=== PATIENT | female | born 1960 | race African-American/Black ===

== ENCOUNTER → 2016-10-14 | Outpatient (CLI) | payer MEDICARE ==
[2015-11-20 19:28] VITALS: BP 162/70
[~2016-10-14] MED LIST: AMLO10TA4 PO; ASPI325T70 PO; ATEN50TA PO; ATOR20TA PO; BUPR150T6 PO; CLON0.3T PO; PANT40TA5 PO; SERT100T PO; ZOLP10TA PO
--- NOTE | 2016-10-14 15:22 | RAD ---
DATE: 10/14/16 EXAM: DIGITAL SCREEN BILAT W/CAD HISTORY: Routine screening COMPARISON: 11/10/13. This study was interpreted with the benefit of Computerized Aided Detection (CAD). TECHNIQUE: CC and MLO views of both breasts are obtained. FINDINGS: The breast tissue density is [B ] . Scattered fibroglandular densities are seen bilaterally. Most lobectomy changes are seen in the left breast with unchanged architectural distortion related to lumpectomy. There are no dominant suspicious masses, suspicious microcalcifications or evidence of architectural distortion. Benign appearing calcifications are seen in the left breast . IMPRESSION: Benign findings BI-RADS CATEGORY: 2 BENIGN FINDING(S) RECOMMENDED FOLLOW-UP: 12M 12 MONTH FOLLOW-UP PQRS compliance statement: Patient information was entered into a reminder system with a target due date for the next mammogram. Mammography is a sensitive method for finding small breast cancers, but it does not detect them all and is not a substitute for careful clinical examination. A negative mammogram does not negate a clinically suspicious finding and should not result in delay in biopsying a clinically suspicious abnormality. "Our facility is accredited by the [employer] Mammography [employer]."
== END | disposition home or self-care (01) ==
LOC: MAMMO 12:12
PROVIDERS: ATTEND Internal Medicine Hematology & Oncology
DX: Z12.31 Encounter for screening mammogram for malignant neoplasm of breast (principal); Z85.3 Personal history of malignant neoplasm of breast
CPT/HCPCS: G0202; 77067

== ENCOUNTER → 2016-12-20 | Outpatient (CLI) | payer MEDICARE ==
[2015-11-20 19:28] VITALS: BP 162/70
--- NOTE | 2016-12-20 15:34 | KCIC ---
PROCEDURE MR of the right shoulder HISTORY Right shoulder pain. Decreased range of motion. Pain with movement since October 2016. TECHNIQUE Routine multiplanar sequences are obtained. COMPARISON FINDINGS Mild motion degradation. The acromioclavicular joint is mildly degenerative. Full-thickness rotator cuff tear of the anterior supraspinatus tendon measures 15 mm AP diameter with 15 mm retraction. Partial undersurface tearing extends through the more posterior rotator cuff. Moderate muscle volume loss with mild fatty infiltration. Mild subdeltoid bursal fluid. Subscapularis tendon is intact. Signal within the superior labrum compatible with degenerative tear. There is more subtle signal at the posterior labrum compatible with degeneration or tear. Biceps tendon is intact. No bone lesion or acute fracture. No acute soft tissue abnormality. No evidence of fluid collection. IMPRESSION 1. Moderate full-thickness tear of the supraspinatus tendon of the rotator cuff. Partial tearing through the more posterior cuff. 2. Degenerative tear of superior and possibly posterior labrum. Electronically signed by: Jaya Love MD (Dec 20, 2016 15:33:42)
== END | disposition home or self-care (01) ==
LOC: KCIC MRI 14:07
PROVIDERS: ATTEND Orthopaedic Surgery
DX: M25.511 Pain in right shoulder (principal)
CPT/HCPCS: 73221

== ENCOUNTER → 2017-06-23 | Outpatient (CLI) | payer MEDICARE ==
[2015-11-20 19:28] VITALS: BP 162/70
--- NOTE | 2017-06-23 10:14 | KCIC ---
MRI left shoulder without contrast dated 06/23/2017 8:45 AM Indication: Left shoulder pain , decreased range of motion , symptoms since January. Comparison: No comparison is available. Technique: Routine multiplanar multisequence imaging performed. No contrast. Findings: Intermediate T2 signal throughout the supraspinatus and infraspinatus portions of the rotator cuff. Full-thickness tear of the supraspinatus tendon with retraction to the 12:00 position. Cuff defect measures approximately 1.8 x 2.1 cm transverse and AP dimension. There is articular surface partial tearing of the infraspinatus with thin fibers that remain attached. The subscapularis is intact. Moderate hypertrophic change of the acromioclavicular joint. There is undersurface spurring of the acromium. There is an unossified os acromiale. Small amount of subacromial/subdeltoid bursal fluid. Intermediate T2 signal within the substance of the long head biceps tendon proximally. Extra articular portion courses within the bicipital groove. Mild hypertrophic change of the glenohumeral joint. Thinning and surface irregularity of the articular cartilage throughout. Selected full-thickness cartilage loss at the inferior glenoid. There is also a linear defect through the anterior inferior labrum in the labral cartilaginous interface. Blunted morphology of the posterior labrum. Suprascapular and spinoglenoid notches are clear. No significant muscle edema or muscle atrophy. IMPRESSION: 1. Rotator cuff tendinopathy with moderate size full-thickness tear of the supraspinatus. 2. Tearing of the anterior inferior labrum and posterior labrum, likely degenerative. 3. Moderate degenerative change in correlation the glenohumeral joint. 4. Mild proximal biceps tendinosis 5. Moderate AC joint arthropathy with undersurface spurring. There is an unossified os acromiale. Electronically signed by: Jaya Sanchez MD (06/23/2017 10:11 AM) [facility]-KCIC2
== END | disposition home or self-care (01) ==
LOC: KCIC MRI 08:35
PROVIDERS: ATTEND Orthopaedic Surgery
DX: M75.102 Unspecified rotator cuff tear or rupture of left shoulder, not specified as traumatic (principal); M19.012 Primary osteoarthritis, left shoulder
CPT/HCPCS: 73221

== ENCOUNTER → 2017-08-20 | Outpatient (CLI) | payer MEDICARE ==
[2015-11-20 19:28] VITALS: BP 162/70
--- NOTE | 2017-08-20 08:01 | RAD ---
Left lower extremity venous ultrasound, 08/20/2017 : History: Left leg swelling and pain Duplex evaluation including grayscale, color flow and spectral Doppler analysis was performed. The femoral and popliteal veins show no filling defects to suggest DVT. The visualized calf veins are unremarkable. IMPRESSION: There is no sonographic evidence of deep vein thrombosis in the left lower extremity
== END | disposition home or self-care (01) ==
LOC: US 07:03
PROVIDERS: ATTEND Family Medicine
DX: M79.605 Pain in left leg (principal); M79.89 Other specified soft tissue disorders; Z98.890 Other specified postprocedural states
CPT/HCPCS: 93971

== ENCOUNTER → 2018-01-09 | Outpatient (CLI) | payer MEDICARE ==
[2018-01-09 13:59] LABS: ADD MAN DIFF? NO
[2018-01-09 14:04] LABS: BASO % 1 % (0-3); EOS # 0.1 x10^3/uL (0.0-0.7); EOS % 2 % (0-3); HEMATOCRIT 37.1 % (36.0-47.0); HEMOGLOBIN 12.4 g/dL (12.0-15.5); LYMPH # 1.9 x10^3/uL (1.0-4.8); LYMPH % 36 % (24-48); MEAN CORPUSCULAR HEMOGLOBIN 28 pg (25-35); MEAN CORPUSCULAR HGB CONC 34 g/dL (31-37); MEAN CORPUSCULAR VOLUME 82 fL (79-100); MONO # 0.7 x10^3/uL (0.0-1.1); MONO % 14 % (0-9); NEUT # 2.4 x10^3uL (1.8-7.7); NEUT % 47 % (31-73); PLATELET COUNT 249 x10^3/uL (140-400); RED BLOOD COUNT 4.52 x10^6/uL (3.50-5.40); RED CELL DISTRIBUTION WIDTH 16.2 % (11.5-14.5); WHITE BLOOD COUNT 5.1 x10^3/uL (4.0-11.0)
[2018-01-09 14:40] LABS: C-REACTIVE PROTEIN 15.8 mg/L (0-3.3)
[2018-01-09 15:15] LABS: SEDIMENTATION RATE 47 (0-25)
== END | disposition home or self-care (01) ==
LOC: LAB 13:43
DX: Z98.890 Other specified postprocedural states (principal); I10 Essential (primary) hypertension; E78.5 Hyperlipidemia, unspecified; R79.89 Other specified abnormal findings of blood chemistry
CPT/HCPCS: 36415; 85025; 85651; 86140

== ENCOUNTER → 2018-02-04 | Outpatient (CLI) | payer MEDICARE ==
[2018-02-04] MEDS: LIDOCAINE 1% Multi-Dose 20 ML VIAL. ID (11:39)
[2018-02-04] MEDS: GADOBUTROL 7.5 MMOL/7.5 ML VIAL INT ART (11:39)
== END | disposition home or self-care (01) ==
LOC: KCIC 10:21
DX: M62.512 Muscle wasting and atrophy, not elsewhere classified, left shoulder (principal); I10 Essential (primary) hypertension; E78.00 Pure hypercholesterolemia, unspecified
CPT/HCPCS: 73040; 73222; A9585

== ENCOUNTER → 2019-07-30 | Outpatient (CLI) | payer MEDICARE ==
[2015-11-20 19:28] VITALS: BP 162/70
[~2019-07-30] MED LIST changes: -PANT40TA5 PO; +PANT40TA77 PO
[2019-07-30 12:10] LABS: BASO % 1 % (0-3); EOS # 0.2 x10^3/uL (0.0-0.7); EOS % 5 % (0-3); HEMATOCRIT 38.5 % (36.0-47.0); HEMOGLOBIN 12.6 g/dL (12.0-15.5); LYMPH # 2.4 x10^3/uL (1.0-4.8); LYMPH % 51 % (24-48); MEAN CORPUSCULAR HEMOGLOBIN 28 pg (25-35); MEAN CORPUSCULAR HGB CONC 33 g/dL (31-37); MEAN CORPUSCULAR VOLUME 85 fL (79-100); MONO # 0.5 x10^3/uL (0.0-1.1); MONO % 11 % (0-9); NEUT # 1.6 x10^3/uL (1.8-7.7); NEUT % 33 % (31-73); PLATELET COUNT 261 x10^3/uL (140-400); RED BLOOD COUNT 4.54 x10^6/uL (3.50-5.40); RED CELL DISTRIBUTION WIDTH 15.7 % (11.5-14.5); WHITE BLOOD COUNT 4.7 x10^3/uL (4.0-11.0)
[2019-07-30 12:35] LABS: ALBUMIN 3.4 g/dL (3.4-5.0); ALBUMIN/GLOBULIN RATIO 0.8 (1.0-1.7); CALCIUM 9.2 mg/dL (8.5-10.1); CREATININE 1.2 mg/dL (0.6-1.0); GFR 55.4; POTASSIUM 3.7 mmol/L (3.5-5.1); TOTAL BILIRUBIN 0.2 mg/dL (0.2-1.0); TOTAL PROTEIN 7.9 g/dL (6.4-8.2)
[2019-07-30 12:37] LABS: CHOLESTEROL/HDL RATIO 2.9
== END ==
LOC: LAB 11:36
PROVIDERS: ATTEND Family Medicine
DX: I63.9 Cerebral infarction, unspecified (principal); I10 Essential (primary) hypertension; E66.01 Morbid (severe) obesity due to excess calories; E78.2 Mixed hyperlipidemia; M19.90 Unspecified osteoarthritis, unspecified site; F41.9 Anxiety disorder, unspecified; F32.9 Major depressive disorder, single episode, unspecified; Z68.41 Body mass index [BMI] 40.0-44.9, adult; Z85.3 Personal history of malignant neoplasm of breast; Z90.89 Acquired absence of other organs; Z98.890 Other specified postprocedural states; Z90.710 Acquired absence of both cervix and uterus
CPT/HCPCS: 36415; 80053; 80061; 84443; 85025

== ENCOUNTER → 2019-10-27 | Outpatient (CLI) | payer BC, MEDICARE ==
[2015-11-20 19:28] VITALS: BP 162/70
--- NOTE | 2019-10-27 15:59 | RAD ---
DATE: October 27, 2019 EXAM: MAMMO MAGO DM VYAS, RIGHT AXILLARY SONOGRAPHY HISTORY: Right axillary lump. History of left breast cancer in 2005 treated with lumpectomy. 3-D DIAGNOSTIC BILATERAL MAMMOGRAPHY COMPARISON: 2013 and 2016 This study was interpreted with the benefit of Computerized Aided Detection (CAD). 2-D digital mammographic views of both breasts were performed in the CC and MLO projections. 3-D digital tomosynthesis images of both breasts were performed in the CC and MLO projections and reviewed on a computer workstation. FINDINGS: Breast Density: FATTY The breast parenchyma is primarily fatty replaced. Breast parenchyma level density A.. Postoperative changes of the left breast are seen which are stable. There are no new dominant suspicious masses, suspicious microcalcifications or new areas of architectural distortion. Fatty replaced axillary lymph node is again seen and is unchanged. RIGHT AXILLARY SONOGRAPHY: High-resolution sonography of the right axillary region was performed in the area of the palpable lump as indicated by the patient. There is a 3.0 cm lymph node present with normal sonographic architecture. There is no abnormal thickening of the hypoechoic cortex. IMPRESSION: Benign appearing fatty replaced right axillary lymph node which is unchanged in size from 2017 mammogram. With regard to any palpable lump of the right axillary region, follow-up should be clinical. Stable postoperative changes of the left breast. There are no mammographic findings for new or recurrent malignancy. BI-RADS CATEGORY: 2 BENIGN FINDING RECOMMENDED FOLLOW-UP: 12M 12 MONTH FOLLOW-UP PQRS compliance statement: Patient information was entered into a reminder system with a target due date October 28, 2020 for the next mammogram. Mammography is a sensitive method for finding small breast cancers, but it does not detect them all and is not a substitute for careful clinical examination. A negative mammogram does not negate a clinically suspicious finding and should not result in delay in biopsying a clinically suspicious abnormality. "Our facility is accredited by the [employer] Mammography [employer]." The patient's breast density may affect the ability of mammography to detect breast cancer. There are 4 categories of breast density, A, B, C and D. Breast density A means that most of the breast tissue is replaced with adipose tissue and therefore is not dense. Breast density B means that the breast tissue is mildly dense and scattered. Breast density C means that the breast tissue is heterogeneously dense. Breast density D means that the breast tissue is very dense. Breast densities especially C and D may decrease the sensitivity of mammography to detect breast cancer. Therefore, the patient may benefit from 3-D breast mammography (3D breast tomography) as a part of their screening mammogram. Insurance may or may not pay for this additional imaging. The patient's breast density based on today's mammogram is category A.
[2019-10-27 16:38] LABS: ALBUMIN 3.6 g/dL (3.4-5.0); ALBUMIN/GLOBULIN RATIO 0.8 (1.0-1.7); CALCIUM 9.1 mg/dL (8.5-10.1)
[2019-10-27 16:39] LABS: CHOLESTEROL/HDL RATIO 2.3; GFR 68.4; POTASSIUM 4.1 mmol/L (3.5-5.1); TOTAL BILIRUBIN 0.4 mg/dL (0.2-1.0)
== END | disposition home or self-care (01) ==
LOC: MAMMO 14:40
PROVIDERS: ATTEND Internal Medicine Hematology & Oncology
DX: E78.2 Mixed hyperlipidemia (principal); N63.10 Unspecified lump in the right breast, unspecified quadrant; Z98.890 Other specified postprocedural states; Z85.3 Personal history of malignant neoplasm of breast
CPT/HCPCS: 36415; 76641; 77066; 80053; 80061; G0279; 77062

== ENCOUNTER → 2020-09-25 | Outpatient (CLI) | payer BC ==
[2015-11-20 19:28] VITALS: BP 162/70
[~2020-09-25] MED LIST changes: +BUPR150T21 PO; -BUPR150T6 PO
[2020-09-25 13:56] LABS: BASO % 1 % (0-3); EOS % 1 % (0-3); HEMATOCRIT 38.4 % (36.0-47.0); HEMOGLOBIN 12.5 g/dL (12.0-15.5); LYMPH # 1.9 x10^3/uL (1.0-4.8); LYMPH % 36 % (24-48); MEAN CORPUSCULAR HEMOGLOBIN 27 pg (25-35); MEAN CORPUSCULAR HGB CONC 33 g/dL (31-37); MEAN CORPUSCULAR VOLUME 84 fL (79-100); MONO # 0.7 x10^3/uL (0.0-1.1); MONO % 15 % (0-9); NEUT # 2.5 x10^3/uL (1.8-7.7); NEUT % 48 % (31-73); PLATELET COUNT 276 x10^3/uL (140-400); RED BLOOD COUNT 4.56 x10^6/uL (3.50-5.40); RED CELL DISTRIBUTION WIDTH 15.7 % (11.5-14.5); WHITE BLOOD COUNT 5.2 x10^3/uL (4.0-11.0)
[2020-09-25 14:13] LABS: ALBUMIN 3.5 g/dL (3.4-5.0); ALBUMIN/GLOBULIN RATIO 0.8 (1.0-1.7); CALCIUM 9.3 mg/dL (8.5-10.1); CREATININE 1.1 mg/dL (0.6-1.0); GFR 61.1; POTASSIUM 3.5 mmol/L (3.5-5.1); TOTAL BILIRUBIN 0.5 mg/dL (0.2-1.0); TOTAL PROTEIN 7.9 g/dL (6.4-8.2)
== END ==
LOC: LAB 13:16
PROVIDERS: ATTEND Family Medicine
DX: I12.9 Hypertensive chronic kidney disease with stage 1 through stage 4 chronic kidney disease, or unspecified chronic kidney disease (principal); N18.9 Chronic kidney disease, unspecified; F41.9 Anxiety disorder, unspecified; Z68.41 Body mass index [BMI] 40.0-44.9, adult
CPT/HCPCS: 36415; 80053; 80061; 84443; 85025

== ENCOUNTER → 2020-10-04 | Outpatient (CLI) | payer BC ==
[2015-11-20 19:28] VITALS: BP 162/70
[~2020-10-04] MED LIST changes: -BUPR150T21 PO; +BUPR150T7 PO
--- NOTE | 2020-10-04 18:34 | RAD ---
Examination: Bilateral digital diagnostic mammogram. INDICATION: Patient is due for mammographic screening. She has a personal history of left breast canc er. COMPARISON: 10/27/2019, 10/14/2016 TECHNIQUE: CC and MLO views of both breasts were obtained with 2-D and 3-D technique and reviewed wit h computer-aided detection. A full field right ML view with 2-D and 3-D technique was also obtained. FINDINGS: Almost entirely fatty replaced breast parenchyma. Stable benign surgical scar in the lateral left breast, consistent with postlumpectomy changes. Questionable asymmetry in the superior right breast at the 12:00 position 4 cm from the nipple seen o n the MLO view did not persist with additional mammographic views in the true lateral projection. IMPRESSION: Benign findings. No evidence of malignancy. BI-RADS Category 2 Benign Recommend return to routine screening next due in one year. Patient entered into a reminder system with target due date for next mammogram. Electronically signed by: Luis Henley MD (10/04/2020 6:32 PM) [id number]
== END ==
LOC: MAMMO 14:45
PROVIDERS: ATTEND Internal Medicine Hematology & Oncology
DX: R92.2 Inconclusive mammogram (principal); Z85.3 Personal history of malignant neoplasm of breast
CPT/HCPCS: 77066; G0279; 77062

== ENCOUNTER → 2021-01-08 | Outpatient (CLI) | payer MEDICARE ==
[2015-11-20 19:28] VITALS: BP 162/70
[~2021-01-08] MED LIST changes: +BUPR150T21 PO; -BUPR150T7 PO
--- NOTE | 2021-01-08 16:01 | RAD ---
EXAM: Left ankle, 3 views. HISTORY: Pain. COMPARISON: None. FINDINGS: 3 views of the left ankle are obtained. There are corticated ossicles inferior to the media l and lateral malleoli, likely degenerative or the sequela of remote injury. There is no acute fractu re, dislocation or subluxation. There is no osteochondral lesion. The ankle mortise intact. There is a small plantar spur and there is enthesopathy at the calyceal insertion. IMPRESSION: No acute osseous finding. Electronically signed by: Marlene Storey MD (01/08/2021 3:58 PM) [id number]
== END ==
LOC: RAD 14:55
PROVIDERS: ATTEND Family Medicine
DX: M77.32 Calcaneal spur, left foot (principal)
CPT/HCPCS: 73610

== ENCOUNTER → 2021-02-02 | Outpatient (CLI) | payer MEDICARE ==
[2015-11-20 19:28] VITALS: BP 162/70
--- NOTE | 2021-02-02 11:06 | RAD ---
EXAM: Pelvis and left hip, 3 views. HISTORY: Pain. COMPARISON: None. FINDINGS: A frontal view of the pelvis and 2 views of the left hip are obtained. There is no fracture , dislocation or subluxation. There is minimal degenerative subchondral sclerosis and subchondral cys t formation involving the left femoral head-neck junction. This is not within limits to suggest signi ficant hip impingement. There is degenerative change, instrumented fusion and laminotomy decompressio n involving the lower lumbar spine. IMPRESSION: 1. No acute osseous finding. 2. Minimal osteoarthritis involving the left hip. 3. Degenerative and postoperative changes involving the lumbar spine. Electronically signed by: Marlene Storey MD (02/02/2021 11:04 AM) [id number]
== END ==
LOC: RAD 09:11
PROVIDERS: ATTEND Family Medicine
DX: M16.12 Unilateral primary osteoarthritis, left hip (principal); M47.816 Spondylosis without myelopathy or radiculopathy, lumbar region; G89.29 Other chronic pain
CPT/HCPCS: 73502

== ENCOUNTER → 2021-03-05 | Outpatient (CLI) | payer MEDICARE ==
[2015-11-20 19:28] VITALS: BP 162/70
[2021-03-05 11:48] LABS: BASO % 1 % (0-3); EOS # 0.2 x10^3/uL (0.0-0.7); EOS % 4 % (0-3); HEMATOCRIT 38.2 % (36.0-47.0); HEMOGLOBIN 12.5 g/dL (12.0-15.5); LYMPH # 1.7 x10^3/uL (1.0-4.8); LYMPH % 35 % (24-48); MEAN CORPUSCULAR HEMOGLOBIN 28 pg (25-35); MEAN CORPUSCULAR HGB CONC 33 g/dL (31-37); MEAN CORPUSCULAR VOLUME 86 fL (79-100); MONO # 0.6 x10^3/uL (0.0-1.1); MONO % 12 % (0-9); NEUT # 2.4 x10^3/uL (1.8-7.7); NEUT % 49 % (31-73); PLATELET COUNT 286 x10^3/uL (140-400); RED BLOOD COUNT 4.46 x10^6/uL (3.50-5.40); WHITE BLOOD COUNT 4.9 x10^3/uL (4.0-11.0)
[2021-03-05 12:10] LABS: ALBUMIN 4.1 g/dL (3.4-5.0); CALCIUM 9.1 mg/dL (8.5-10.1); CREATININE 1.1 mg/dL (0.6-1.0); GFR 61.1; TOTAL BILIRUBIN 0.5 mg/dL (0.2-1.0); TOTAL PROTEIN 8.3 g/dL (6.4-8.2)
[2021-03-05 12:13] LABS: FREE T4 0.84 ng/dL (0.76-1.46); THYROID STIM HORMONE (TSH) 0.647 uIU/mL (0.358-3.74)
== END ==
LOC: LAB 10:03
PROVIDERS: ATTEND Family Medicine
DX: I10 Essential (primary) hypertension (principal); R01.1 Cardiac murmur, unspecified; F33.1 Major depressive disorder, recurrent, moderate
CPT/HCPCS: 36415; 80053; 80061; 83880; 84439; 84443; 85025

== ENCOUNTER → 2021-03-06 | Outpatient (CLI) | payer MEDICARE ==
[2015-11-20 19:28] VITALS: BP 162/70
--- NOTE | 2021-03-06 16:05 | KCIC ---
EXAM: Lumbar spine MRI without contrast. HISTORY: Radiculopathy. TECHNIQUE: Multiplanar, multisequence magnetic resonance imaging of the lumbar spine was performed wi thout contrast. COMPARISON: 10/19/2015 FINDINGS: There is instrumented posterior spinal fusion and laminectomy decompression at L4-L5. There are also laminectomy changes at L5-S1. There is lumbar scoliosis. There is grade 1 anterolisthesis o f L4 and L5, measuring 4 mm. There is grade 1 anterolisthesis of L2 on L3, measuring 2 mm. There is m ultilevel endplate remodeling. There are few endplate Schmorl's nodes. There is no fracture or suspic ious osseous lesion. The conus terminates at L1-L2. There is an incidental atrophic or hypoplastic left kidney with small simple cyst. Follow-up is not r outinely performed for simple cysts. At T10-T11, there is a disc bulge and endplate remodeling. There is mild left facet arthropathy. Ther e is mild right and moderate left foraminal stenosis. There is mild central canal stenosis. At T11-T12, there is a disc bulge and endplate remodeling. There is mild right greater than left face t arthropathy. There is moderate right foraminal stenosis. There is mild central canal stenosis. At T12-L1, there is moderate left greater than right facet arthropathy. There is no stenosis. At L1-L2, there is moderate bilateral facet arthropathy. There is no stenosis. At L2-L3, there is a disc bulge and endplate remodeling. There is severe right and moderate to severe left facet arthropathy. There is anterolisthesis. There is mild bilateral foraminal stenosis with ab utment of the exiting L2 nerve roots. There is mild to moderate central canal stenosis. At L3-L4, there is a disc bulge and endplate osteophytosis. There is moderate bilateral facet arthrop athy. There is mild bilateral foraminal stenosis with abutment of the exiting L3 nerve roots. There i s mild to moderate central canal stenosis. At L4-L5, there is instrumented posterior spinal fusion and laminectomy decompression. There is a dis c bulge and endplate remodeling. There is grade 1 anterolisthesis. There is mild left foraminal steno sis. At L5-S1, there are left hemilaminectomy and microdiscectomy changes. There is a left paracentral to lateral recess disc protrusion and annular tear with 3 mm inferior extrusion superimposed on endplate osteophytosis. There is effacement of the left lateral recess and abutment the traversing left S1 ne rve root. IMPRESSION: 1. Multilevel degenerative change involving the lower thoracic and lumbar spine, described in detail above. This results in stenosis at the aforementioned levels. 2. Instrumented posterior spinal fusion and laminectomy decompression at L4-L5 and left hemilaminecto my and microdiscectomy changes at L5-S1. There is effacement of the left lateral recess at L5-S1 like ly due to the combination of a left paracentral to lateral recess disc protrusion and inferior extrus ion and postoperative scar/granulation tissue. 3. Mild scoliosis and multilevel listhesis. Electronically signed by: Marlene Storey MD (03/06/2021 4:02 PM) [id number]
== END ==
LOC: KCIC MRI 14:06
PROVIDERS: ATTEND Family Medicine
DX: M51.17 Intervertebral disc disorders with radiculopathy, lumbosacral region (principal); M47.25 Other spondylosis with radiculopathy, thoracolumbar region; M41.86 Other forms of scoliosis, lumbar region; M48.05 Spinal stenosis, thoracolumbar region
CPT/HCPCS: 72148

== ENCOUNTER 2021-03-15 09:23 | Observation (INO) | payer MEDICARE ==
[~2021-03-15] VITALS: Ht 167.6 cm; Wt 104.0 kg
--- NOTE | 2021-03-15 09:30 | ED.ADGEN ---
Past Medical History Past Medical History: Arthritis, Fibromyalgia, High Cholesterol, Stroke Past Surgical History: Knee Replacement, Other Additional Past Surgical Histo: BACK SURGERY Smoking Status: Never Smoker Alcohol Use: None Drug Use: None General Adult EDM: Chief Complaint: SHORTNESS OF BREATH HPI: HPI: Patient is a 60 year old female coming in via EMS for shortness of breath and right back pain. Patient stated she woke up with the pain and now feels short of breath because is difficult to breathe because breathing makes the pain worse. Patient denies any tobacco history or lung problems. Patient has a history of dyslipidemia hypertension, and breast cancer 15 years ago. Denies a cough. Has had both of her Covid vaccines. No personal cardiac history Review of Systems: Review of Systems: All other systems within normal limits except for as noted in the HPI Current Medications: Current Medications Medications (Trade) Dose Ordered Sig/Adrian Start Time Stop Time Status Last Admin Dose Admin Acetaminophen (Tylenol) 650 mg PRN Q4HRS PRN 03/15/21 13:45 03/16/21 13:44 Diphenhydramine HCl (Benadryl) 50 mg OC PROC PRN 03/16/21 06:00 03/17/21 05:59 Famotidine (Pepcid) 20 mg OC PROC PRN 03/16/21 06:00 03/17/21 05:59 Fentanyl Citrate (Fentanyl 2ml Vial) 50 mcg PRN Q1HR PRN 03/15/21 13:45 03/16/21 13:44 Ketorolac Tromethamine (Toradol 15mg Vial) 15 mg 1X ONCE 03/15/21 10:15 03/15/21 10:16 DC 03/15/21 10:48 15 MG Ondansetron HCl (Zofran) 4 mg PRN Q8HRS PRN 03/15/21 13:45 03/16/21 13:44 Prednisone (Prednisone) 50 mg Q6H 03/15/21 13:45 03/16/21 01:46 Allergies: Allergies: Allergies Coded Allergies Type Severity Reaction Last Updated Verified Iodinated Contrast Media Allergy Intermediate Rash 10/19/15 Yes iodine Allergy Intermediate Hives 10/18/15 Yes morphine Allergy Intermediate Rash 10/18/15 Yes Physical Exam: PE: Constitutional: Well developed, well nourished, no acute distress, non-toxic appearance. [] HENT: Normocephalic, atraumatic, bilateral external ears normal, nose normal. [] Eyes: PERRLA, conjunctiva normal, no discharge. [] Neck: No rigidity, supple, no stridor. [] Cardiovascular: Regular rate and rhythm, brisk cap refill [] Lungs & Thorax: Non labored symmetric respirations, no tachypnea or respiratory distress [] Abdomen: Soft, nondistended. Skin: Warm, dry, no erythema, no rash. [] Back: Unremarkable, right CVA tenderness reproducible palpation Extremities: No deformities, range of motion grossly intact, no lower extremity edema [] Neurologic: Alert and oriented X 3, no focal deficits noted. [] Psychologic: Affect normal, judgement normal, mood normal. [] Current Patient Data: Labs: Laboratory Tests Test 03/15/21 09:52 03/15/21 10:14 03/15/21 10:43 White Blood Count 6.6 x10^3/uL (4.0-11.0) Red Blood Count 4.28 x10^6/uL (3.50-5.40) Hemoglobin 12.1 g/dL (12.0-15.5) Hematocrit 36.4 % (36.0-47.0) Mean Corpuscular Volume 85 fL (79-100) Mean Corpuscular Hemoglobin 28 pg (25-35) Mean Corpuscular Hemoglobin Concent 33 g/dL (31-37) Red Cell Distribution Width 15.9 % (11.5-14.5) H Platelet Count 252 x10^3/uL (140-400) Neutrophils (%) (Auto) 52 % (31-73) Lymphocytes (%) (Auto) 31 % (24-48) Monocytes (%) (Auto) 13 % (0-9) H Eosinophils (%) (Auto) 3 % (0-3) Basophils (%) (Auto) 1 % (0-3) Neutrophils # (Auto) 3.4 x10^3/uL (1.8-7.7) Lymphocytes # (Auto) 2.1 x10^3/uL (1.0-4.8) Monocytes # (Auto) 0.9 x10^3/uL (0.0-1.1) Eosinophils # (Auto) 0.2 x10^3/uL (0.0-0.7) Basophils # (Auto) 0.1 x10^3/uL (0.0-0.2) Sodium Level 141 mmol/L (136-145) Potassium Level 4.1 mmol/L (3.5-5.1) Chloride Level 105 mmol/L (98-107) Carbon Dioxide Level 24 mmol/L (21-32) Anion Gap 12 (6-14) Blood Urea Nitrogen 25 mg/dL (7-20) H Creatinine 1.3 mg/dL (0.6-1.0) H Estimated GFR (Cockcroft-Gault) 50.4 BUN/Creatinine Ratio 19 (6-20) Glucose Level 84 mg/dL (70-99) Calcium Level 9.4 mg/dL (8.5-10.1) Total Bilirubin 0.4 mg/dL (0.2-1.0) Aspartate Amino Transferase (AST) 33 U/L (15-37) Alanine Aminotransferase (ALT) 33 U/L (14-59) Alkaline Phosphatase 100 U/L (46-116) Troponin I Quantitative < 0.017 ng/mL (0.000-0.055) Total Protein 7.7 g/dL (6.4-8.2) Albumin 4.1 g/dL (3.4-5.0) Albumin/Globulin Ratio 1.1 (1.0-1.7) Urine Collection Type Void Urine Color Yellow Urine Clarity Clear Urine pH 7.0 (<5.0-8.0) Urine Specific Starlight 1.010 (1.000-1.030) Urine Protein Negative mg/dL (NEG-TRACE) Urine Glucose (UA) Negative mg/dL (NEG) Urine Ketones (Stick) Negative mg/dL (NEG) Urine Blood Negative (NEG) Urine Nitrite Negative (NEG) Urine Bilirubin Negative (NEG) Urine Urobilinogen Dipstick 0.2 mg/dL (0.2 mg/dL) Urine Leukocyte Esterase Trace (NEG) Urine RBC 0 /HPF (0-2) Urine WBC 1-4 /HPF (0-4) Urine Squamous Epithelial Cells Few /LPF Urine Bacteria Few /HPF (0-FEW) D-Dimer (Kiersten) 0.68 ug/mlFEU (0.00-0.50) H Laboratory Tests 03/15/21 09:52 Laboratory Tests 03/15/21 09:52 Vital Signs: Vital Signs Date Time Temp Pulse Resp B/P (MAP) Pulse Ox O2 Delivery O2 Flow Rate FiO2 03/15/21 11:59 20 98 Room Air 03/15/21 10:30 71 138/80 (99) EKG: EKG: Sinus rhythm, heart rate 60 bpm, left axis deviation, no ST elevation or depression, T wave inversions in V2, V3, V4, V5. Heart Score: C/O Chest Pain: No Risk Factors: Risk Factors: DM, Current or recent (<one month) smoker, HTN, HLP, family hist ory of CAD, obesity. Risk Scores: Score 0 - 3: 2.5% MACE over next 6 weeks - Discharge Home Score 4 - 6: 20.3% MACE over next 6 weeks - Admit for Clinical Observation Score 7 - 10: 72.7% MACE over next 6 weeks - Early Invasive Strategies Radiology/Procedures: Radiology/Procedures: [facility] [address] [place] [address] IMAGING REPORT Signed PATIENT: FRANK JAY ACCOUNT: [id number] : 1960 LOCATION: ER AGE: 60 SEX: F EXAM STATUS: PRE ER ORD. PHYSICIAN: SHAKILA MATA MD REASON: dyspnea,pain rt side when takes deep breath. PROCEDURE: CHEST PA & LATERAL EXAMINATION: Chest radiograph. VIEWS: Single view COMPARISON: 10/18/2015 INDICATION:60 years, Female, dyspnea and right chest pain. FINDINGS: Normal cardiomediastinal silhouette. No focal consolidation. No pleural effusion or pneumothorax. No acute osseous process. IMPRESSION: No acute cardiopulmonary process. Electronically signed by: Eliu Ornelas MD (03/15/2021 10:05 AM) [id number] DICTATED and SIGNED BY: ELIU ORNELAS MD DATE: 03/15/21 [id number] 0 [] Course & Med Decision Making: Course & Med Decision Making Pertinent Labs and Imaging studies reviewed. (See chart for details) Patient with elevated dimer and and intermediate probability of PE on VQ scan. Discussed with radiologist and interventional radiology rn, will admit for pretreatment for patient's contrast allergy to have a CTA done to rule out or in a PE [] Clark Disclaimer: Clark Disclaimer: This electronic medical record was generated, in whole or in part, using a voice recognition dictation system. Departure Departure Impression: Primary Impression: Dyspnea Additional Impression: Rib pain on right side Disposition: ADMITTED INPATIENT Admitting Physician: BRIANA Condition: STABLE Referrals: ORACIO ACE (PCP) Problem Qualifiers SHAKILA MATA MD Mar 15, 2021 09:30
[2021-03-15 10:02] LABS: BASO # 0.1 x10^3/uL (0.0-0.2); BASO % 1 % (0-3); EOS # 0.2 x10^3/uL (0.0-0.7); EOS % 3 % (0-3); HEMATOCRIT 36.4 % (36.0-47.0); HEMOGLOBIN 12.1 g/dL (12.0-15.5); LYMPH # 2.1 x10^3/uL (1.0-4.8); LYMPH % 31 % (24-48); MEAN CORPUSCULAR HEMOGLOBIN 28 pg (25-35); MEAN CORPUSCULAR HGB CONC 33 g/dL (31-37); MEAN CORPUSCULAR VOLUME 85 fL (79-100); MONO # 0.9 x10^3/uL (0.0-1.1); MONO % 13 % (0-9); NEUT # 3.4 x10^3/uL (1.8-7.7); NEUT % 52 % (31-73); PLATELET COUNT 252 x10^3/uL (140-400); RED BLOOD COUNT 4.28 x10^6/uL (3.50-5.40); RED CELL DISTRIBUTION WIDTH 15.9 % (11.5-14.5); WHITE BLOOD COUNT 6.6 x10^3/uL (4.0-11.0)
--- NOTE | 2021-03-15 10:08 | RAD ---
EXAMINATION: Chest radiograph. VIEWS: Single view COMPARISON: 10/18/2015 INDICATION:60 years, Female, dyspnea and right chest pain. FINDINGS: Normal cardiomediastinal silhouette. No focal consolidation. No pleural effusion or pneumothorax. No acute osseous process. IMPRESSION: No acute cardiopulmonary process. Electronically signed by: Stephenie Ornelas MD (03/15/2021 10:05 AM) [id number]
[2021-03-15 10:12] LABS: CALCIUM 9.4 mg/dL (8.5-10.1); CREATININE 1.3 mg/dL (0.6-1.0); GFR 50.4; POTASSIUM 4.1 mmol/L (3.5-5.1)
[2021-03-15] MEDS ORDERED: KETOROLAC 15 MG/ML VIAL. IVP ONE (10:15)
[2021-03-15 10:18] LABS: ALBUMIN 4.1 g/dL (3.4-5.0); ALBUMIN/GLOBULIN RATIO 1.1 (1.0-1.7); TOTAL BILIRUBIN 0.4 mg/dL (0.2-1.0); TOTAL PROTEIN 7.7 g/dL (6.4-8.2)
[2021-03-15 10:26] LABS: BILIRUBIN,URINE NEGATIVE (NEG); CLARITY,URINE CLEAR; COLOR,URINE YELLOW; NITRITE,URINE NEGATIVE (NEG); PROTEIN,URINE NEGATIVE (NEG-TRACE); UROBILINOGEN,URINE 0.2 mg/dL (0.2 mg/dL)
[2021-03-15 10:34] LABS: BACTERIA,URINE FEW /HPF (0-FEW); RBC,URINE 0 /HPF (0-2)
[2021-03-15] MEDS ORDERED: fentaNYL PF VIAL 100 MCG/2 ML VIAL IVP ONE (11:45)
--- NOTE | 2021-03-15 12:51 | RAD ---
Indication: Reason: dyspnea, elevated dimer / Spl. Instructions: / History: Technique: Static images are obtained of both lungs following IV administration of 6 mCi of 99 M tech netium MAA. 16 mci of xenon-133 was administered for ventilation images. Comparison: Chest x-ray from same day Findings: There are some bilateral perfusion defects identified with some of these best seen on oblique or late ral perfusion images therefore difficult to tell if these are matched or mismatched. Impression: 1. Overall intermediate probability for pulmonary embolus with some bilateral patchy perfusion defect s seen. Electronically signed by: Casa Jara MD (03/15/2021 12:49 PM) [id number]
--- NOTE | 2021-03-15 13:36 | PDOC1 ---
History and Physical Date of Admission Date of Admission DATE: 03/15/21 TIME: 13:34 Identification/Chief Complaint Chief Complaint chest discomfort, abnormal pulm perfusion scan in ER History of Present Illness History of Present Illness 60 year old femaleTO ER via EMS for shortness of breath and right back pain. stated she woke up with the pain and now feels short of breath because is difficult to breathe because breathing makes the pain worse. denies any tobacco history or lung problems. review of history dyslipidemia hypertension, and breast cancer 15 years ago. Denies cough. completed both of her Covid vaccines perfusion scan intermediate probability for pulmonary embolus bilateral patchy perfusion defects d-DIMER elevated 0.68 / CT angiogram in the morning if BUN and creatinine correct with hydration cr 1.3 on admit, will consult nephrology Past Medical History Past Medical History Past Medical History Past Medical History Past Medical History: Arthritis, Fibromyalgia, High Cholesterol, Stroke Past Surgical History: Knee Replacement, Other Additional Past Surgical Histo: BACK SURGERY Smoking Status: Never Smoker Alcohol Use: None Drug Use: None Past Medical History Past Medical History Past Medical History: Arthritis, Fibromyalgia, High Cholesterol, Stroke BCA s/p sx, chemo and RT Past Surgical History Past Surgical History mastectomy Past Surgical History: Knee Replacement Family History Family History: Heart Disease FHX OBESITY Social History Smoke: No ALCOHOL: none Drugs: None Cardiovascular: HTN, Hyperlipidemia Pulmonary: Pneumonia CENTRAL NERVOUS SYSTEM: CVA GI: No pertinent hx Heme/Onc: Cancer Hepatobiliary: No pertinent hx Psych: Depression Musculoskeletal: Osteoarthritis Rheumatologic: Fibromyalgia Infectious disease: No pertinent hx, Other Renal/: UTI Endocrine: No pertinent hx Past Surgical History Past Surgical History: Appendectomy, Total knee replacement, Tonsillectomy, Other Family History Family History: Hypertension, Stroke Social History Smoke: No ALCOHOL: none Drugs: None Current Medications Current Medications Current Medications Ketorolac Tromethamine (Toradol 15mg Vial) 15 mg 1X ONCE IVP Last administered on 03/15/21at 10:48; Start 03/15/21 at 10:15; Stop 03/15/21 at 10:16; Status DC Fentanyl Citrate (Fentanyl 2ml Vial) 75 mcg 1X ONCE IVP Last administered on 03/15/21at 11:59; Start 03/15/21 at 11:45; Stop 03/15/21 at 11:46; Status DC Active Scripts Active Pantoprazole Sodium 40 Mg Tablet.dr 40 Mg PO DAILYAC Reported Aspirin Buffered 325 Mg Tab (Aspirin/Calcium Carbonate/Mag) 325 Mg Tablet 325 Mg PO DAILY Lipitor (Atorvastatin Calcium) 20 Mg Tablet 20 Mg PO DAILY Clonidine Hcl 0.3 Mg Tablet 0.3 Mg PO BID Ambien (Zolpidem Tartrate) 10 Mg Tablet 10 Mg PO HS PRN Atenolol 50 Mg Tablet 50 Mg PO BID Bupropion Xl (Bupropion Hcl) 150 Mg Tab.er.24h 150 Mg PO DAILY Zoloft (Sertraline Hcl) 100 Mg Tablet 100 Mg PO DAILY Norvasc (Amlodipine Besylate) 10 Mg Tablet 10 Mg PO BID Allergies Allergies: Coded Allergies: Iodinated Contrast Media (Verified Allergy, Intermediate, Rash, 10/19/15) iodine (Verified Allergy, Intermediate, Hives, 10/18/15) ITCHING morphine (Verified Allergy, Intermediate, Rash, 10/18/15) ITCHING ROS General: No: Chills, Night Sweats, Fatigue, Malaise, Appetite, Other PSYCHOLOGICAL ROS: No: Anxiety, Behavioral Disorder, Concentration difficultie, Decreased libido, Depression, Disorientation, Hallucinations, Hostility, Irritablity, Memory difficulties, Mood Swings, Obsessive thoughts, Physical abuse, Sexual abuse, Sleep disturbances, Suicidal ideation, Other Eyes: No Blurry vision, No Decreased vision, No Double vision, No Dry eyes, No Excessive tearing, No Eye Pain, No Itchy Eyes, No Loss of vision, No Photophobia, No Scotomata, No Uses contacts, No Uses glasses, No Other HEENT: No: Heacaches, Visual Changes, Hearing change, Nasal congestion, Nasal discharge, Oral lesions, Sinus pain, Sore Throat, Epistaxis, Sneezing, Snoring, Tinnitus, Vertigo, Vocal changes, Other ALLERGY AND IMMUNOLOGY: No: Hives, Insect Bite Sensitivity, Itchy/Watery Eyes, Nasal Congestion, Post Nasal Drip, Seasonal Allergies, Other Hematological and Lymphatic: No: Bleeding Problems, Blood Clots, Blood Transfusions, Brusing, Night Sweats, Pallor, Swollen Lymph Nodes, Other ENDOCRINE: No: Breast Changes, Galactorrhea, Hair Pattern Changes, Hot Flashes, Malaise/lethargy, Mood Swings, Palpitations, Polydipsia/polyuria, Skin Changes, Temperature Intolerance, Unexpected Weight Changes, Other Breast: No New/Changing Breast Lumps, No Nipple changes, No Nipple discharge, No Other Respiratory: YES: Pleuritic Pain, Shortness of breath, SOB with excertion; No: Cough, Hemoptysis, Orthopnea, Sputum Changes, Stridor, Tachypnea, Wheezing, Other Cardiovascular: yes Chest Pain; No Palpitations, No Orthopnea, No Paroxysmal Noc. Dyspnea, No Edema, No Lt Headedness, No Other Gastrointestinal: No Nausea, No Vomiting, No Abdominal Pain, No Diarrhea, No Constipation, No Melena, No Hematochezia, No Other Genitourinary: No Dysuria, No Frequency, No Incontinence, No Hematuria, No Retention, No Discharge, No Urgency, No Pain, No Flank Pain, No Other, No , No , No , No , No , No , No Musculoskeletal: No Gait Disturbance, No Joint Pain, No Joint Stiffness, No Joint Swelling, No Muscle Pain, No Muscular Weakness, No Pain In:, No Swelling In:, No Other Neurological: No Behavorial Changes, No Bowel/Bladder ControlChng, No Confusion, No Dizziness, No Gait Disturbance, No Headaches, No Impaired Coord/balance, No Memory Loss, No Numbness/Tingling, No Seizures, No Speech Prob lems, No Tremors, No Visual Changes, No Weakness, No Other Skin: No Dry Skin, No Eczema, No Hair Changes, No Lumps, No Mole Changes, No Mottling, No Nail Changes, No Pruritus, No Rash, No Skin Lesion Changes, No Other, No Acne Physical Exam General: Alert, Oriented X3, Cooperative, No acute distress HEENT: PERRLA, EOMI, Mucous membr. moist/pink Lungs: Clear to auscultation, Normal air movement Heart: S1S2, RRR, no thrills, no rubs, no gallops, no jug vein distention Breasts: Not examined Abdomen: Normal bowel sounds, Soft, No tenderness, No hepatosplenomegaly, No masses Rectal Exam: not examined Extremities: No cyanosis Neuro: Normal speech, Sensation intact, Cranial nerves 3-12 NL Psych/Mental Status: Mental status NL, Mood NL Vitals Vitals Vital Signs Date Time Temp Pulse Resp B/P (MAP) Pulse Ox O2 Delivery O2 Flow Rate FiO2 03/15/21 11:59 20 98 Room Air 03/15/21 10:30 71 138/80 (99) Labs Labs Laboratory Tests Test 03/15/21 09:52 03/15/21 10:14 03/15/21 10:43 White Blood Count 6.6 x10^3/uL (4.0-11.0) Red Blood Count 4.28 x10^6/uL (3.50-5.40) Hemoglobin 12.1 g/dL (12.0-15.5) Hematocrit 36.4 % (36.0-47.0) Mean Corpuscular Volume 85 fL (79-100) Mean Corpuscular Hemoglobin 28 pg (25-35) Mean Corpuscular Hemoglobin Concent 33 g/dL (31-37) Red Cell Distribution Width 15.9 % (11.5-14.5) Platelet Count 252 x10^3/uL (140-400) Neutrophils (%) (Auto) 52 % (31-73) Lymphocytes (%) (Auto) 31 % (24-48) Monocytes (%) (Auto) 13 % (0-9) Eosinophils (%) (Auto) 3 % (0-3) Basophils (%) (Auto) 1 % (0-3) Neutrophils # (Auto) 3.4 x10^3/uL (1.8-7.7) Lymphocytes # (Auto) 2.1 x10^3/uL (1.0-4.8) Monocytes # (Auto) 0.9 x10^3/uL (0.0-1.1) Eosinophils # (Auto) 0.2 x10^3/uL (0.0-0.7) Basophils # (Auto) 0.1 x10^3/uL (0.0-0.2) Sodium Level 141 mmol/L (136-145) Potassium Level 4.1 mmol/L (3.5-5.1) Chloride Level 105 mmol/L (98-107) Carbon Dioxide Level 24 mmol/L (21-32) Anion Gap 12 (6-14) Blood Urea Nitrogen 25 mg/dL (7-20) Creatinine 1.3 mg/dL (0.6-1.0) Estimated GFR (Cockcroft-Gault) 50.4 BUN/Creatinine Ratio 19 (6-20) Glucose Level 84 mg/dL (70-99) Calcium Level 9.4 mg/dL (8.5-10.1) Total Bilirubin 0.4 mg/dL (0.2-1.0) Aspartate Amino Transf (AST/SGOT) 33 U/L (15-37) Alanine Aminotransferase (ALT/SGPT) 33 U/L (14-59) Alkaline Phosphatase 100 U/L (46-116) Troponin I Quantitative < 0.017 ng/mL (0.000-0.055) Total Protein 7.7 g/dL (6.4-8.2) Albumin 4.1 g/dL (3.4-5.0) Albumin/Globulin Ratio 1.1 (1.0-1.7) Urine Collection Type Void Urine Color Yellow Urine Clarity Clear Urine pH 7.0 (<5.0-8.0) Urine Specific [place] 1.010 (1.000-1.030) Urine Protein Negative mg/dL (NEG-TRACE) Urine Glucose (UA) Negative mg/dL (NEG) Urine Ketones (Stick) Negative mg/dL (NEG) Urine Blood Negative (NEG) Urine Nitrite Negative (NEG) Urine Bilirubin Negative (NEG) Urine Urobilinogen Dipstick 0.2 mg/dL (0.2 mg/dL) Urine Leukocyte Esterase Trace (NEG) Urine RBC 0 /HPF (0-2) Urine WBC 1-4 /HPF (0-4) Urine Squamous Epithelial Cells Few /LPF Urine Bacteria Few /HPF (0-FEW) D-Dimer (Kiersten) 0.68 ug/mlFEU (0.00-0.50) Laboratory Tests Test 03/15/21 09:52 03/15/21 10:14 03/15/21 10:43 White Blood Count 6.6 x10^3/uL (4.0-11.0) Red Blood Count 4.28 x10^6/uL (3.50-5.40) Hemoglobin 12.1 g/dL (12.0-15.5) Hematocrit 36.4 % (36.0-47.0) Mean Corpuscular Volume 85 fL (79-100) Mean Corpuscular Hemoglobin 28 pg (25-35) Mean Corpuscular Hemoglobin Concent 33 g/dL (31-37) Red Cell Distribution Width 15.9 % (11.5-14.5) Platelet Count 252 x10^3/uL (140-400) Neutrophils (%) (Auto) 52 % (31-73) Lymphocytes (%) (Auto) 31 % (24-48) Monocytes (%) (Auto) 13 % (0-9) Eosinophils (%) (Auto) 3 % (0-3) Basophils (%) (Auto) 1 % (0-3) Neutrophils # (Auto) 3.4 x10^3/uL (1.8-7.7) Lymphocytes # (Auto) 2.1 x10^3/uL (1.0-4.8) Monocytes # (Auto) 0.9 x10^3/uL (0.0-1.1) Eosinophils # (Auto) 0.2 x10^3/uL (0.0-0.7) Basophils # (Auto) 0.1 x10^3/uL (0.0-0.2) Sodium Level 141 mmol/L (136-145) Potassium Level 4.1 mmol/L (3.5-5.1) Chloride Level 105 mmol/L (98-107) Carbon Dioxide Level 24 mmol/L (21-32) Anion Gap 12 (6-14) Blood Urea Nitrogen 25 mg/dL (7-20) Creatinine 1.3 mg/dL (0.6-1.0) Estimated GFR (Cockcroft-Gault) 50.4 BUN/Creatinine Ratio 19 (6-20) Glucose Level 84 mg/dL (70-99) Calcium Level 9.4 mg/dL (8.5-10.1) Total Bilirubin 0.4 mg/dL (0.2-1.0) Aspartate Amino Transf (AST/SGOT) 33 U/L (15-37) Alanine Aminotransferase (ALT/SGPT) 33 U/L (14-59) Alkaline Phosphatase 100 U/L (46-116) Troponin I Quantitative < 0.017 ng/mL (0.000-0.055) Total Protein 7.7 g/dL (6.4-8.2) Albumin 4.1 g/dL (3.4-5.0) Albumin/Globulin Ratio 1.1 (1.0-1.7) Urine Collection Type Void Urine Color Yellow Urine Clarity Clear Urine pH 7.0 (<5.0-8.0) Urine Specific [place] 1.010 (1.000-1.030) Urine Protein Negative mg/dL (NEG-TRACE) Urine Glucose (UA) Negative mg/dL (NEG) Urine Ketones (Stick) Negative mg/dL (NEG) Urine Blood Negative (NEG) Urine Nitrite Negative (NEG) Urine Bilirubin Negative (NEG) Urine Urobilinogen Dipstick 0.2 mg/dL (0.2 mg/dL) Urine Leukocyte Esterase Trace (NEG) Urine RBC 0 /HPF (0-2) Urine WBC 1-4 /HPF (0-4) Urine Squamous Epithelial Cells Few /LPF Urine Bacteria Few /HPF (0-FEW) D-Dimer (Kiersten) 0.68 ug/mlFEU (0.00-0.50) Images Images PATIENT: FRANK JAY ACCOUNT: [id number] : 1960 LOCATION: ER AGE: 60 SEX: F EXAM STATUS: PRE ER ORD. PHYSICIAN: SHAKILA MATA MD REASON: dyspnea,pain rt side when takes deep breath. PROCEDURE: CHEST PA & LATERAL EXAMINATION: Chest radiograph. VIEWS: Single view COMPARISON: 10/18/2015 INDICATION:60 years, Female, dyspnea and right chest pain. FINDINGS: Normal cardiomediastinal silhouette. No focal consolidation. No pleural effusion or pneumothorax. No acute osseous process. IMPRESSION: No acute cardiopulmonary process. Electronically signed by: Eliu Ornelas MD (03/15/2021 10:05 AM) [id number] DICTATED and SIGNED BY: ELIU ORNELAS MD DATE: 03/15/21 [id number] PATIENT: FRANK JAY ACCOUNT: [id number] : 1960 LOCATION: ER AGE: 60 SEX: F EXAM STATUS: REG ER ORD. PHYSICIAN: SHAKILA MATA MD REASON: dyspnea, elevated dimer PROCEDURE: LUNG VENT/PERFUSION SCAN(VQ) Indication: Reason: dyspnea, elevated dimer / Spl. Instructions: / History: Technique: Static images are obtained of both lungs following IV administration of 6 mCi of 99 M technetium MAA. 16 mci of xenon-133 was administered for ventilation images. Comparison: Chest x-ray from same day Findings: There are some bilateral perfusion defects identified with some of these best seen on oblique or lateral perfusion images therefore difficult to tell if these are matched or mismatched. Impression: 1. Overall intermediate probability for pulmonary embolus with some bilateral patchy perfusion defects seen. Electronically signed by: Kristy Hernandez MD (03/15/2021 12:49 PM) [id number] DICTATED and SIGNED BY: KRISTY HERNANDEZ MD DATE: 03/15/21 [id number] VTE Prophylaxis Ordered VTE Prophylaxis Devices: Yes VTE Pharmacological Prophylaxi: Yes Assessment/Plan Assessment/Plan Impression: Acute Chest discomfort, probable pleuritic vs GERD intermediate probability for pulmonary embolus bilateral patchy perfusion defects Morbid obesity dyslipidemia hypertension, hx breast cancer 15 years ago. 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
[2021-03-15] MEDS ORDERED: ONDANSETRON PF 4 MG/2 ML VIAL. IV PRN ×2 (13:45→16:00)
[2021-03-15] MEDS ORDERED: ACETAMINOPHEN 325 MG TABLET. PO PRN (13:45)
[2021-03-15] MEDS: predniSONE 10 MG TABLET PO SCH ×3 (14:05→14:07)
[2021-03-15] MEDS ORDERED: SODIUM PHOSPHATES 19/7GM 133 ML ENEMA. PR PRN (16:00)
[2021-03-15] MEDS ORDERED: ACETAMINOPHEN 650 MG/20.3 ML SOLUTION. GT PRN (16:00)
[2021-03-15] MEDS ORDERED: guaiFENesin ORAL 200 MG/10 ML LIQUID. PO PRN (16:00)
[2021-03-15] MEDS ORDERED: ZOLPIDEM 5 MG TABLET. PO PRN (16:00)
[2021-03-15] MEDS ORDERED: DOCUSATE SODIUM 100 MG CAPSULE. PO PRN (16:00)
[2021-03-15] MEDS ORDERED: 0.9 % SODIUM CHLORIDE 10 ML DISP.SYRIN. IV PRN (16:00)
[2021-03-15] MEDS ORDERED: ALBUTEROL SULFATE 2.5 MG/3 ML NEBU. NEB PRN (16:00)
--- NOTE | 2021-03-15 16:51 | PDOC ---
PULMONARY PROGRESS NOTES DATE: 03/15/21 TIME: 16:50 Vitals Vital Signs Date Time Temp Pulse Resp B/P (MAP) Pulse Ox O2 Delivery O2 Flow Rate FiO2 03/15/21 15:30 78 18 142/62 (88) 98 Room Air Labs Laboratory Tests Test 03/15/21 09:52 03/15/21 10:14 03/15/21 10:43 White Blood Count 6.6 x10^3/uL (4.0-11.0) Red Blood Count 4.28 x10^6/uL (3.50-5.40) Hemoglobin 12.1 g/dL (12.0-15.5) Hematocrit 36.4 % (36.0-47.0) Mean Corpuscular Volume 85 fL (79-100) Mean Corpuscular Hemoglobin 28 pg (25-35) Mean Corpuscular Hemoglobin Concent 33 g/dL (31-37) Red Cell Distribution Width 15.9 % (11.5-14.5) Platelet Count 252 x10^3/uL (140-400) Neutrophils (%) (Auto) 52 % (31-73) Lymphocytes (%) (Auto) 31 % (24-48) Monocytes (%) (Auto) 13 % (0-9) Eosinophils (%) (Auto) 3 % (0-3) Basophils (%) (Auto) 1 % (0-3) Neutrophils # (Auto) 3.4 x10^3/uL (1.8-7.7) Lymphocytes # (Auto) 2.1 x10^3/uL (1.0-4.8) Monocytes # (Auto) 0.9 x10^3/uL (0.0-1.1) Eosinophils # (Auto) 0.2 x10^3/uL (0.0-0.7) Basophils # (Auto) 0.1 x10^3/uL (0.0-0.2) Sodium Level 141 mmol/L (136-145) Potassium Level 4.1 mmol/L (3.5-5.1) Chloride Level 105 mmol/L (98-107) Carbon Dioxide Level 24 mmol/L (21-32) Anion Gap 12 (6-14) Blood Urea Nitrogen 25 mg/dL (7-20) Creatinine 1.3 mg/dL (0.6-1.0) Estimated GFR (Cockcroft-Gault) 50.4 BUN/Creatinine Ratio 19 (6-20) Glucose Level 84 mg/dL (70-99) Calcium Level 9.4 mg/dL (8.5-10.1) Total Bilirubin 0.4 mg/dL (0.2-1.0) Aspartate Amino Transf (AST/SGOT) 33 U/L (15-37) Alanine Aminotransferase (ALT/SGPT) 33 U/L (14-59) Alkaline Phosphatase 100 U/L (46-116) Troponin I Quantitative < 0.017 ng/mL (0.000-0.055) Total Protein 7.7 g/dL (6.4-8.2) Albumin 4.1 g/dL (3.4-5.0) Albumin/Globulin Ratio 1.1 (1.0-1.7) Urine Collection Type Void Urine Color Yellow Urine Clarity Clear Urine pH 7.0 (<5.0-8.0) Urine Specific [place] 1.010 (1.000-1.030) Urine Protein Negative mg/dL (NEG-TRACE) Urine Glucose (UA) Negative mg/dL (NEG) Urine Ketones (Stick) Negative mg/dL (NEG) Urine Blood Negative (NEG) Urine Nitrite Negative (NEG) Urine Bilirubin Negative (NEG) Urine Urobilinogen Dipstick 0.2 mg/dL (0.2 mg/dL) Urine Leukocyte Esterase Trace (NEG) Urine RBC 0 /HPF (0-2) Urine WBC 1-4 /HPF (0-4) Urine Squamous Epithelial Cells Few /LPF Urine Bacteria Few /HPF (0-FEW) D-Dimer (Kiersten) 0.68 ug/mlFEU (0.00-0.50) Laboratory Tests Test 03/15/21 09:52 03/15/21 10:14 03/15/21 10:43 White Blood Count 6.6 x10^3/uL (4.0-11.0) Red Blood Count 4.28 x10^6/uL (3.50-5.40) Hemoglobin 12.1 g/dL (12.0-15.5) Hematocrit 36.4 % (36.0-47.0) Mean Corpuscular Volume 85 fL (79-100) Mean Corpuscular Hemoglobin 28 pg (25-35) Mean Corpuscular Hemoglobin Concent 33 g/dL (31-37) Red Cell Distribution Width 15.9 % (11.5-14.5) Platelet Count 252 x10^3/uL (140-400) Neutrophils (%) (Auto) 52 % (31-73) Lymphocytes (%) (Auto) 31 % (24-48) Monocytes (%) (Auto) 13 % (0-9) Eosinophils (%) (Auto) 3 % (0-3) Basophils (%) (Auto) 1 % (0-3) Neutrophils # (Auto) 3.4 x10^3/uL (1.8-7.7) Lymphocytes # (Auto) 2.1 x10^3/uL (1.0-4.8) Monocytes # (Auto) 0.9 x10^3/uL (0.0-1.1) Eosinophils # (Auto) 0.2 x10^3/uL (0.0-0.7) Basophils # (Auto) 0.1 x10^3/uL (0.0-0.2) Sodium Level 141 mmol/L (136-145) Potassium Level 4.1 mmol/L (3.5-5.1) Chloride Level 105 mmol/L (98-107) Carbon Dioxide Level 24 mmol/L (21-32) Anion Gap 12 (6-14) Blood Urea Nitrogen 25 mg/dL (7-20) Creatinine 1.3 mg/dL (0.6-1.0) Estimated GFR (Cockcroft-Gault) 50.4 BUN/Creatinine Ratio 19 (6-20) Glucose Level 84 mg/dL (70-99) Calcium Level 9.4 mg/dL (8.5-10.1) Total Bilirubin 0.4 mg/dL (0.2-1.0) Aspartate Amino Transf (AST/SGOT) 33 U/L (15-37) Alanine Aminotransferase (ALT/SGPT) 33 U/L (14-59) Alkaline Phosphatase 100 U/L (46-116) Troponin I Quantitative < 0.017 ng/mL (0.000-0.055) Total Protein 7.7 g/dL (6.4-8.2) Albumin 4.1 g/dL (3.4-5.0) Albumin/Globulin Ratio 1.1 (1.0-1.7) Urine Collection Type Void Urine Color Yellow Urine Clarity Clear Urine pH 7.0 (<5.0-8.0) Urine Specific [place] 1.010 (1.000-1.030) Urine Protein Negative mg/dL (NEG-TRACE) Urine Glucose (UA) Negative mg/dL (NEG) Urine Ketones (Stick) Negative mg/dL (NEG) Urine Blood Negative (NEG) Urine Nitrite Negative (NEG) Urine Bilirubin Negative (NEG) Urine Urobilinogen Dipstick 0.2 mg/dL (0.2 mg/dL) Urine Leukocyte Esterase Trace (NEG) Urine RBC 0 /HPF (0-2) Urine WBC 1-4 /HPF (0-4) Urine Squamous Epithelial Cells Few /LPF Urine Bacteria Few /HPF (0-FEW) D-Dimer (Kiersten) 0.68 ug/mlFEU (0.00-0.50) Medications Active Scripts Medications Dose Route/Sig Max Daily Dose Days Date Category Pantoprazole Sodium (Pantoprazole Sodium) 40 Mg Tablet.dr 40 Mg PO DAILYAC 10/19/15 Rx Aspirin Buffered 325 Mg Tab (Aspirin/Calcium Carbonate/Mag) 325 Mg Tablet 325 Mg PO DAILY 03/04/14 Reported Lipitor (Atorvastatin Calcium) 20 Mg Tablet 20 Mg PO DAILY 03/04/14 Reported Clonidine Hcl 0.3 Mg Tablet 0.3 Mg PO BID 03/04/14 Reported Ambien (Zolpidem Tartrate) 10 Mg Tablet 10 Mg PO HS PRN 03/04/14 Reported Atenolol 50 Mg Tablet 50 Mg PO BID 03/04/14 Reported Bupropion Xl (Bupropion Hcl) 150 Mg Tab.er.24h 150 Mg PO DAILY 03/04/14 Reported Zoloft (Sertraline Hcl) 100 Mg Tablet 100 Mg PO DAILY 03/04/14 Reported Norvasc (Amlodipine Besylate) 10 Mg Tablet 10 Mg PO BID 03/04/14 Reported Impression . Data RN labs reviewed, VQ scan reviewed We will hydrate Possible CT angiogram in the morning if BUN and creatinine correct with hydration NICHOLE EUCEDA MD Mar 15, 2021 16:50
[2021-03-15] MEDS ORDERED: ASPI-886 PO (17:38)
[2021-03-15] MEDS ORDERED: VENL75TA2 PO (17:42)
[2021-03-15] MEDS ORDERED: PREG-9 PO (17:42)
[2021-03-15] MEDS ORDERED: AMLO-187 PO (17:45)
[2021-03-15] MEDS ORDERED: PANT40TA77 PO (17:45)
[2021-03-15] MEDS ORDERED: HYDR-2769 PO (17:45)
[2021-03-15] MEDS: IV 1/2 NORMAL SALINE 1,000 ML IV SCH (17:51)
[2021-03-15] MEDS: fentaNYL PF VIAL 100 MCG/2 ML VIAL IV PRN ×2 (17:51→22:04)
[2021-03-15 18:30] VITALS: BP 128/72
--- NOTE | 2021-03-15 19:16 | NUR ---
Ms. Bella Jauregui was admitted for possible PE arrived on the unit at 1600, on room air accompanied by the patient's daughter. She's awake, alert, oriented x 4 and ambulatory. Belongings were checked and home meds reconciled. She's placed on a comfortable position, call light placed within reach.
[2021-03-15] MEDS ORDERED: ATENOLOL 50 MG TABLET. PO SCH (21:00)
[2021-03-15] MEDS ORDERED: diphenhydrAMINE HCL 25 MG CAPSULE PO ONE (21:00)
[2021-03-15] MEDS ORDERED: ATORVASTATIN CALCIUM 20 MG TABLET PO SCH (21:00)
[2021-03-15] MEDS ORDERED: ENOXAPARIN 40 MG/0.4 ML SYRINGE. SQ SCH (21:00)
[2021-03-15] MEDS ORDERED: FAMOTIDINE 20 MG TABLET. PO ONE (21:00)
[2021-03-15] MEDS: cloNIDine HCL 0.3 MG TABLET PO SCH (21:55)
[2021-03-15 23:00] VITALS: BP 108/59
--- NOTE | 2021-03-16 00:10 | RAD ---
Exam: US BILATERAL LOWEREXTREMITY VENOUS DOPPLER Indication: ELEVATED D DIMER/ DVT / dyspnea Technique: Color-flow and pulsed wave duplex ultrasound with compression of venous structures of th e bilateral lower extremities. Comparison: None Available. Findings: Duplex ultrasound with compression of the deep venous structures of the bilateral lower ext remities from the common femoral vein through the popliteal vein is negative for DVT. The posterior t ibial and peroneal veins are segmentally visualized and patent where seen. Normal venous waveforms an d augmentation are noted throughout. Impression: No evidence for DVT in the bilateral lower extremities. Electronically signed by: Johnny Levi MD (03/16/2021 12:08 AM) [id number]
[2021-03-16 03:00] VITALS: BP 91/53
[2021-03-16] MEDS: IV 1/2 NORMAL SALINE 1,000 ML IV SCH ×2 (03:00→13:00)
[2021-03-16 05:34] LABS: CALCIUM 8.6 mg/dL (8.5-10.1); CREATININE 1.2 mg/dL (0.6-1.0); GFR 55.3; POTASSIUM 4.2 mmol/L (3.5-5.1)
[2021-03-16] MEDS: fentaNYL PF VIAL 100 MCG/2 ML VIAL IV PRN ×2 (05:58→09:04)
[2021-03-16] MEDS ORDERED: diphenhydrAMINE HCL 25 MG CAPSULE PO PRN (06:00)
[2021-03-16] MEDS ORDERED: FAMOTIDINE 20 MG TABLET. PO PRN (06:00)
[2021-03-16 07:00] VITALS: BP 106/59
[2021-03-16] MEDS ORDERED: PANTOPRAZOLE 40 MG TABLET.DR. PO SCH (07:30)
[2021-03-16] MEDS ORDERED: ASPIRIN ENTERIC COATED 325 MG TABLET.DR. PO SCH (08:00)
[2021-03-16] MEDS: cloNIDine HCL 0.3 MG TABLET PO SCH (08:26)
--- NOTE | 2021-03-16 08:53 | PDOC ---
PULMONARY PROGRESS NOTES DATE: 03/16/21 TIME: 08:52 Vitals Vital Signs Date Time Temp Pulse Resp B/P (MAP) Pulse Ox O2 Delivery O2 Flow Rate FiO2 03/16/21 08:27 75 106/59 03/16/21 07:00 98.4 18 100 Room Air 98.4 03/15/21 22:04 97.0 Labs Laboratory Tests Test 03/15/21 09:52 03/15/21 10:14 03/15/21 10:43 03/16/21 04:45 White Blood Count 6.6 x10^3/uL (4.0-11.0) Red Blood Count 4.28 x10^6/uL (3.50-5.40) Hemoglobin 12.1 g/dL (12.0-15.5) Hematocrit 36.4 % (36.0-47.0) Mean Corpuscular Volume 85 fL (79-100) Mean Corpuscular Hemoglobin 28 pg (25-35) Mean Corpuscular Hemoglobin Concent 33 g/dL (31-37) Red Cell Distribution Width 15.9 % (11.5-14.5) Platelet Count 252 x10^3/uL (140-400) Neutrophils (%) (Auto) 52 % (31-73) Lymphocytes (%) (Auto) 31 % (24-48) Monocytes (%) (Auto) 13 % (0-9) Eosinophils (%) (Auto) 3 % (0-3) Basophils (%) (Auto) 1 % (0-3) Neutrophils # (Auto) 3.4 x10^3/uL (1.8-7.7) Lymphocytes # (Auto) 2.1 x10^3/uL (1.0-4.8) Monocytes # (Auto) 0.9 x10^3/uL (0.0-1.1) Eosinophils # (Auto) 0.2 x10^3/uL (0.0-0.7) Basophils # (Auto) 0.1 x10^3/uL (0.0-0.2) Sodium Level 141 mmol/L (136-145) 140 mmol/L (136-145) Potassium Level 4.1 mmol/L (3.5-5.1) 4.2 mmol/L (3.5-5.1) Chloride Level 105 mmol/L (98-107) 106 mmol/L (98-107) Carbon Dioxide Level 24 mmol/L (21-32) 26 mmol/L (21-32) Anion Gap 12 (6-14) 8 (6-14) Blood Urea Nitrogen 25 mg/dL (7-20) 22 mg/dL (7-20) Creatinine 1.3 mg/dL (0.6-1.0) 1.2 mg/dL (0.6-1.0) Estimated GFR (Cockcroft-Gault) 50.4 55.3 BUN/Creatinine Ratio 19 (6-20) Glucose Level 84 mg/dL (70-99) 114 mg/dL (70-99) Calcium Level 9.4 mg/dL (8.5-10.1) 8.6 mg/dL (8.5-10.1) Total Bilirubin 0.4 mg/dL (0.2-1.0) Aspartate Amino Transf (AST/SGOT) 33 U/L (15-37) Alanine Aminotransferase (ALT/SGPT) 33 U/L (14-59) Alkaline Phosphatase 100 U/L (46-116) Troponin I Quantitative < 0.017 ng/mL (0.000-0.055) Total Protein 7.7 g/dL (6.4-8.2) Albumin 4.1 g/dL (3.4-5.0) Albumin/Globulin Ratio 1.1 (1.0-1.7) Urine Collection Type Void Urine Color Yellow Urine Clarity Clear Urine pH 7.0 (<5.0-8.0) Urine Specific [place] 1.010 (1.000-1.030) Urine Protein Negative mg/dL (NEG-TRACE) Urine Glucose (UA) Negative mg/dL (NEG) Urine Ketones (Stick) Negative mg/dL (NEG) Urine Blood Negative (NEG) Urine Nitrite Negative (NEG) Urine Bilirubin Negative (NEG) Urine Urobilinogen Dipstick 0.2 mg/dL (0.2 mg/dL) Urine Leukocyte Esterase Trace (NEG) Urine RBC 0 /HPF (0-2) Urine WBC 1-4 /HPF (0-4) Urine Squamous Epithelial Cells Few /LPF Urine Bacteria Few /HPF (0-FEW) D-Dimer (Kiersten) 0.68 ug/mlFEU (0.00-0.50) Laboratory Tests Test 03/15/21 09:52 03/15/21 10:14 03/15/21 10:43 03/16/21 04:45 White Blood Count 6.6 x10^3/uL (4.0-11.0) Red Blood Count 4.28 x10^6/uL (3.50-5.40) Hemoglobin 12.1 g/dL (12.0-15.5) Hematocrit 36.4 % (36.0-47.0) Mean Corpuscular Volume 85 fL (79-100) Mean Corpuscular Hemoglobin 28 pg (25-35) Mean Corpuscular Hemoglobin Concent 33 g/dL (31-37) Red Cell Distribution Width 15.9 % (11.5-14.5) Platelet Count 252 x10^3/uL (140-400) Neutrophils (%) (Auto) 52 % (31-73) Lymphocytes (%) (Auto) 31 % (24-48) Monocytes (%) (Auto) 13 % (0-9) Eosinophils (%) (Auto) 3 % (0-3) Basophils (%) (Auto) 1 % (0-3) Neutrophils # (Auto) 3.4 x10^3/uL (1.8-7.7) Lymphocytes # (Auto) 2.1 x10^3/uL (1.0-4.8) Monocytes # (Auto) 0.9 x10^3/uL (0.0-1.1) Eosinophils # (Auto) 0.2 x10^3/uL (0.0-0.7) Basophils # (Auto) 0.1 x10^3/uL (0.0-0.2) Sodium Level 141 mmol/L (136-145) 140 mmol/L (136-145) Potassium Level 4.1 mmol/L (3.5-5.1) 4.2 mmol/L (3.5-5.1) Chloride Level 105 mmol/L (98-107) 106 mmol/L (98-107) Carbon Dioxide Level 24 mmol/L (21-32) 26 mmol/L (21-32) Anion Gap 12 (6-14) 8 (6-14) Blood Urea Nitrogen 25 mg/dL (7-20) 22 mg/dL (7-20) Creatinine 1.3 mg/dL (0.6-1.0) 1.2 mg/dL (0.6-1.0) Estimated GFR (Cockcroft-Gault) 50.4 55.3 BUN/Creatinine Ratio 19 (6-20) Glucose Level 84 mg/dL (70-99) 114 mg/dL (70-99) Calcium Level 9.4 mg/dL (8.5-10.1) 8.6 mg/dL (8.5-10.1) Total Bilirubin 0.4 mg/dL (0.2-1.0) Aspartate Amino Transf (AST/SGOT) 33 U/L (15-37) Alanine Aminotransferase (ALT/SGPT) 33 U/L (14-59) Alkaline Phosphatase 100 U/L (46-116) Troponin I Quantitative < 0.017 ng/mL (0.000-0.055) Total Protein 7.7 g/dL (6.4-8.2) Albumin 4.1 g/dL (3.4-5.0) Albumin/Globulin Ratio 1.1 (1.0-1.7) Urine Collection Type Void Urine Color Yellow Urine Clarity Clear Urine pH 7.0 (<5.0-8.0) Urine Specific [place] 1.010 (1.000-1.030) Urine Protein Negative mg/dL (NEG-TRACE) Urine Glucose (UA) Negative mg/dL (NEG) Urine Ketones (Stick) Negative mg/dL (NEG) Urine Blood Negative (NEG) Urine Nitrite Negative (NEG) Urine Bilirubin Negative (NEG) Urine Urobilinogen Dipstick 0.2 mg/dL (0.2 mg/dL) Urine Leukocyte Esterase Trace (NEG) Urine RBC 0 /HPF (0-2) Urine WBC 1-4 /HPF (0-4) Urine Squamous Epithelial Cells Few /LPF Urine Bacteria Few /HPF (0-FEW) D-Dimer (Kiersten) 0.68 ug/mlFEU (0.00-0.50) Medications Active Scripts Medications Dose Route/Sig Max Daily Dose Days Date Category Pantoprazole Sodium (Pantoprazole Sodium) 40 Mg Tablet.dr 40 Mg PO DAILYAC 10/19/15 Rx Aspirin Buffered 325 Mg Tab (Aspirin/Calcium Carbonate/Mag) 325 Mg Tablet 325 Mg PO DAILY 03/04/14 Reported Lipitor (Atorvastatin Calcium) 20 Mg Tablet 20 Mg PO DAILY 03/04/14 Reported Clonidine Hcl 0.3 Mg Tablet 0.3 Mg PO BID 03/04/14 Reported Ambien (Zolpidem Tartrate) 10 Mg Tablet 10 Mg PO HS PRN 03/04/14 Reported Atenolol 50 Mg Tablet 50 Mg PO BID 03/04/14 Reported Bupropion Xl (Bupropion Hcl) 150 Mg Tab.er.24h 150 Mg PO DAILY 03/04/14 Reported Zoloft (Sertraline Hcl) 100 Mg Tablet 100 Mg PO DAILY 03/04/14 Reported Norvasc (Amlodipine Besylate) 10 Mg Tablet 10 Mg PO BID 03/04/14 Reported Impression . Full note dictated Discussed case with Dr. Ortega, VQ scan is closer to a low probability scan and then intermediate. Clinical presentation for pulmonary embolism is very low Venous Dopplers of the lower extremities is negative. Doubt pulmonary embolism, suspect pleuritic type of pain is related to pleurisy. Discontinue full dose anticoagulation. We will follow. NICHOLE EUCEDA MD Mar 16, 2021 08:52
[2021-03-16] MEDS ORDERED: SERTRALINE 50 MG TABLET. PO SCH (09:00)
[2021-03-16] MEDS ORDERED: buPROPion XL 150 MG TAB.ER.24H. PO SCH (09:00)
[2021-03-16] MEDS ORDERED: CONTRAST GIVEN. MC PRN (09:00)
[2021-03-16] MEDS ORDERED: IOHEXOL 350 MG/ML 100 ML VIAL. IV ONE (09:00)
[2021-03-16] MEDS ORDERED: methylPREDNISolone SOD SUCC PF 125 MG/2 ML VIAL. IV ONE (10:00)
[2021-03-16] MEDS ORDERED: diphenhydrAMINE 50 MG/ML VIAL IVP ONE (10:00)
[2021-03-16] MEDS ORDERED: FAMOTIDINE 20 MG/2 ML VIAL IVP ONE (10:00)
[2021-03-16 11:00] VITALS: BP 108/57
--- NOTE | 2021-03-16 11:20 | RAD ---
EXAM: CT angiography of the chest with intravenous contrast. HISTORY: Shortness of air. TECHNIQUE: Computed tomographic images of the chest were obtained following the administration of int ravenous contrast according to angiography protocol. Multiplanar reformatting was performed and three dimensional maximum intensity projection images were obtained. The patient was premedicated for the exam due to a reported contrast allergy. *One or more of the following individualized dose reduction techniques were utilized for this examina tion: 1. Automated exposure control. 2. Adjustment of the mA and/or kV according to patient size. 3. Use of iterative reconstruction technique. COMPARISON: None. FINDINGS: Evaluation of the distal pulmonary arteries is limited due to suboptimal contrast opacifica tion. No convincing pulmonary embolus is seen. The heart is normal in size. The aorta is normal in ca liber. There is a standard aortic arch branching pattern. There is no lymphadenopathy. There is no pn eumothorax or pleural effusion. There is left infrahilar groundglass opacity likely due to atelectasi s. There is minimal posterior dependent atelectasis. There is no infiltrate. There is no suspicious p ulmonary nodule. There is no acute finding involving the upper abdomen. There is an atrophic or hypop lastic left kidney containing a tiny calcification. There are degenerative changes throughout the spi ne. There is no acute osseous finding. IMPRESSION: 1. No convincing pulmonary embolism. Evaluation is slightly limited due to suboptimal contrast opacif ication of the pulmonary arteries. 2. No alternative acute thoracic finding. Electronically signed by: Marlene Storey MD (03/16/2021 11:17 AM) [id number]
--- NOTE | 2021-03-16 12:02 | PDOC2 ---
CONSULT Date of Consult Date of Consult DATE: 03/16/21 TIME: 11:56 Reason for Consult Reason for Consult: RENAL FAILURE Referring Physician Referring Physician: CATHY Identification/Chief Complaint Chief Complaint SOB Source Source: Chart review, Patient History of Present Illness Reason for Visit: THIS IS A 60 YR OLD WITH SOB. UNDERGOING EVAL FOR PE BY PULM. CXRAY NEG FOR ACUTE FINDINGS. CR OF 1.3 AND RENAL CONSULT ASKED DUE TO THIS. NO HX OF ANY DM BUT DOES HAVE HTN. REVIEW OF OLD RECORDS SHOWED BASELINE CR OF 1.2-1.3 THAT IS C/W STAGE 2 CKD. UA NEG FOR PROT OR BLOOD. HEMODYNAMICALLY STABLE. NO NEPHROTOXINS NOTED. NO HX OF ANY KIDNEY OR BLADDER SURGERIES HEMATURIA DYSURIA OR FREQUENCY NOTED. CKD MOST LIKELY DUE TO HX OR HTN WHICH IS CURRENTLY WELL CONTROLLED Past Medical History Cardiovascular: HTN, Hyperlipidemia Pulmonary: Pneumonia CENTRAL NERVOUS SYSTEM: CVA GI: No pertinent hx Heme/Onc: Cancer Hepatobiliary: No pertinent hx Psych: Depression Musculoskeletal: Osteoarthritis Rheumatologic: Fibromyalgia Infectious disease: No pertinent hx, Other Renal/: Chronic renal insuff, UTI Endocrine: No pertinent hx Past Surgical History Past Surgical History: Appendectomy, Total knee replacement, Tonsillectomy, Other Family History Family History: Hypertension, Stroke Social History No ALCOHOL: none Drugs: None Lives: with Family Current Problem List Problem List Problems Medical Problems: (1) Dyspnea Status: Acute (2) Rib pain on right side Status: Acute Current Medications Current Medications Current Medications Ketorolac Tromethamine (Toradol 15mg Vial) 15 mg 1X ONCE IVP Last administered on 03/15/21at 10:48; Start 03/15/21 at 10:15; Stop 03/15/21 at 10:16; Status DC Fentanyl Citrate (Fentanyl 2ml Vial) 75 mcg 1X ONCE IVP Last administered on 03/15/21at 11:59; Start 03/15/21 at 11:45; Stop 03/15/21 at 11:46; Status DC Prednisone (Prednisone) 50 mg Q6H PO Last administered on 03/15/21at 14:07; Start 03/15/21 at 13:45; Stop 03/16/21 at 01:46; Status DC Diphenhydramine HCl (Benadryl) 50 mg 1X ONCE PO ; Start 03/15/21 at 21:00; Stop 03/15/21 at 21:01; Status DC Diphenhydramine HCl (Benadryl) 50 mg OC PROC PRN PO PRE-PROCEDURE; Start 03/16/21 at 06:00; Stop 03/17/21 at 05:59 Famotidine (Pepcid) 20 mg 1X ONCE PO Last administered on 03/15/21at 21:54; Start 03/15/21 at 21:00; Stop 03/15/21 at 21:01; Status DC Famotidine (Pepcid) 20 mg OC PROC PRN PO PRE-PROCEDURE; Start 03/16/21 at 06:00; Stop 03/17/21 at 05:59 Ondansetron HCl (Zofran) 4 mg PRN Q8HRS PRN IV NAUSEA/VOMITING; Start 03/15/21 at 13:45; Stop 03/16/21 at 13:44 Fentanyl Citrate (Fentanyl 2ml Vial) 50 mcg PRN Q1HR PRN IV PAIN Last administered on 03/16/21at 09:04; Start 03/15/21 at 13:45; Stop 03/16/21 at 13:44 Acetaminophen (Tylenol) 650 mg PRN Q4HRS PRN PO FEVER > 100.3'F; Start 03/15/21 at 13:45; Stop 03/16/21 at 13:44 Amlodipine Besylate (Norvasc) 10 mg DAILY PO Last administered on 03/16/21at 08:27; Start 03/16/21 at 09:00 Atenolol (Tenormin) 50 mg BID PO ; Start 03/15/21 at 21:00; Status Cancel Atorvastatin Calcium (Lipitor) 20 mg QHS PO Last administered on 03/15/21at 21:54; Start 03/15/21 at 21:00 Bupropion HCl (Wellbutrin Xl) 150 mg DAILY PO Last administered on 03/16/21at 08:26; Start 03/16/21 at 09:00 Clonidine HCl (Catapres) 0.3 mg BID PO Last administered on 03/16/21at 08:26; Start 03/15/21 at 21:00 Pantoprazole Sodium (Protonix) 40 mg DAILYAC PO Last administered on 03/16/21at 08:26; Start 03/16/21 at 07:30 Aspirin (Ecotrin) 325 mg DAILYWBKFT PO Last administered on 03/16/21at 08:27; Start 03/16/21 at 08:00 Sertraline HCl (Zoloft) 100 mg DAILY PO Last administered on 03/16/21at 08:26; Start 03/16/21 at 09:00 Sodium Chloride (Normal Saline Flush) 3 ml QSHIFT PRN IV AFTER MEDS AND BLOOD DRAWS; Start 03/15/21 at 16:00 Ondansetron HCl (Zofran) 4 mg PRN Q4HRS PRN IV NAUSEA/VOMITING; Start 03/15/21 at 16:00 Zolpidem Tartrate (Ambien) 5 mg PRN QHS PRN PO INSOMNIA Last administered on 03/15/21at 22:03; Start 03/15/21 at 16:00 Acetaminophen (Tylenol) 650 mg PRN Q4HRS PRN GT TEMP OVER 100.4F OR MILD PAIN; Start 03/15/21 at 16:00 Sodium Monofluorophosphate (Fleet Adult) 133 ml PRN DAILY PRN HI CONSTIPATION; Start 03/15/21 at 16:00 Docusate Sodium (Colace) 100 mg PRN BID PRN PO HARD STOOLS; Start 03/15/21 at 16:00 Albuterol Sulfate (Ventolin Neb Soln) 2.5 mg PRN Q4HRS PRN NEB SHORTNESS OF BREATH; Start 03/15/21 at 16:00 Guaifenesin (Robitussin) 200 mg PRN Q4HRS PRN PO COUGH; Start 03/15/21 at 16:00 Enoxaparin Sodium (Lovenox 40mg Syringe) 40 mg Q24H SQ Last administered on 03/15/21at 21:55; Start 03/15/21 at 21:00 Sodium Chloride 1,000 ml @ 100 mls/hr Q10H IV Last administered on 03/16/21at 03:00; Start 03/15/21 at 17:00 Iohexol (Omnipaque 350 Mg/ml) 90 ml 1X ONCE IV ; Start 03/16/21 at 09:00; Stop 03/16/21 at 09:01; Status DC Info (CONTRAST GIVEN -- Rx MONITORING) 1 each PRN DAILY PRN MC SEE COMMENTS; Start 03/16/21 at 09:00; Stop 03/18/21 at 08:59 Methylprednisolone Sodium Succinate (SOLU-Medrol 125MG VIAL) 125 mg 1X ONCE IV Last administered on 03/16/21at 10:36; Start 03/16/21 at 10:00; Stop 03/16/21 at 10:01; Status DC Diphenhydramine HCl (Benadryl) 50 mg 1X ONCE IVP Last administered on 03/16/21at 10:35; Start 03/16/21 at 10:00; Stop 03/16/21 at 10:01; Status DC Famotidine (Pepcid Vial) 40 mg 1X ONCE IVP Last administered on 03/16/21at 10:36; Start 03/16/21 at 10:00; Stop 03/16/21 at 10:01; Status DC Active Scripts Active Reported Amlodipine Besylate 10 Mg Tablet 10 Mg PO DAILY Pantoprazole Sodium (Pantoprazole Sodium) 40 Mg Tablet.dr 40 Mg PO DAILYAC Venlafaxine Hcl Er (Venlafaxine Hcl) 75 Mg Tab.er.24 1 Tab PO DAILY 30 Days Lyrica (Pregabalin) 75 Mg Capsule 1 Cap PO BID Aspirin Ec (Aspirin) 81 Mg Tablet.dr 1 Tab PO DAILY Lipitor (Atorvastatin Calcium) 20 Mg Tablet 20 Mg PO DAILY Clonidine Hcl 0.3 Mg Tablet 0.3 Mg PO BID Ambien (Zolpidem Tartrate) 10 Mg Tablet 10 Mg PO HS PRN Bupropion Xl (Bupropion Hcl) 150 Mg Tab.er.24h 150 Mg PO DAILY Allergies Allergies: Coded Allergies: Iodinated Contrast Media (Verified Allergy, Intermediate, Rash, 10/19/15) iodine (Verified Allergy, Intermediate, Hives, 10/18/15) ITCHING morphine (Verified Allergy, Intermediate, Rash, 10/18/15) ITCHING ROS General: YES: Fatigue PSYCHOLOGICAL ROS: YES: Anxiety Eyes: Yes Decreased vision Respiratory: YES: Cough, Shortness of breath Cardiovascular: yes Chest Pain Gastrointestinal: Yes Constipation Genitourinary: YES Other (NOCTURIA) Neurological: Yes Weakness Skin: Yes Dry Skin Physical Exam General: Alert, Cooperative HEENT: Atraumatic, PERRLA Lungs: Clear to auscultation Heart: Regular rate Abdomen: Normal bowel sounds, Soft, No tenderness Skin: No breakdown Neuro: Normal speech Psych/Mental Status: Mental status NL, Mood NL MUSCULOSKELETAL: No joint tenderness, No deformity Vitals VITALS Vital Signs Date Time Temp Pulse Resp B/P (MAP) Pulse Ox O2 Delivery O2 Flow Rate FiO2 03/16/21 09:34 17 Room Air 03/16/21 08:27 75 106/59 03/16/21 07:00 98.4 100 98.4 03/15/21 22:04 97.0 Labs Labs Laboratory Tests Test 03/15/21 09:52 03/15/21 10:14 03/15/21 10:43 03/16/21 04:45 White Blood Count 6.6 x10^3/uL (4.0-11.0) Red Blood Count 4.28 x10^6/uL (3.50-5.40) Hemoglobin 12.1 g/dL (12.0-15.5) Hematocrit 36.4 % (36.0-47.0) Mean Corpuscular Volume 85 fL (79-100) Mean Corpuscular Hemoglobin 28 pg (25-35) Mean Corpuscular Hemoglobin Concent 33 g/dL (31-37) Red Cell Distribution Width 15.9 % (11.5-14.5) Platelet Count 252 x10^3/uL (140-400) Neutrophils (%) (Auto) 52 % (31-73) Lymphocytes (%) (Auto) 31 % (24-48) Monocytes (%) (Auto) 13 % (0-9) Eosinophils (%) (Auto) 3 % (0-3) Basophils (%) (Auto) 1 % (0-3) Neutrophils # (Auto) 3.4 x10^3/uL (1.8-7.7) Lymphocytes # (Auto) 2.1 x10^3/uL (1.0-4.8) Monocytes # (Auto) 0.9 x10^3/uL (0.0-1.1) Eosinophils # (Auto) 0.2 x10^3/uL (0.0-0.7) Basophils # (Auto) 0.1 x10^3/uL (0.0-0.2) Sodium Level 141 mmol/L (136-145) 140 mmol/L (136-145) Potassium Level 4.1 mmol/L (3.5-5.1) 4.2 mmol/L (3.5-5.1) Chloride Level 105 mmol/L (98-107) 106 mmol/L (98-107) Carbon Dioxide Level 24 mmol/L (21-32) 26 mmol/L (21-32) Anion Gap 12 (6-14) 8 (6-14) Blood Urea Nitrogen 25 mg/dL (7-20) 22 mg/dL (7-20) Creatinine 1.3 mg/dL (0.6-1.0) 1.2 mg/dL (0.6-1.0) Estimated GFR (Cockcroft-Gault) 50.4 55.3 BUN/Creatinine Ratio 19 (6-20) Glucose Level 84 mg/dL (70-99) 114 mg/dL (70-99) Calcium Level 9.4 mg/dL (8.5-10.1) 8.6 mg/dL (8.5-10.1) Total Bilirubin 0.4 mg/dL (0.2-1.0) Aspartate Amino Transf (AST/SGOT) 33 U/L (15-37) Alanine Aminotransferase (ALT/SGPT) 33 U/L (14-59) Alkaline Phosphatase 100 U/L (46-116) Troponin I Quantitative < 0.017 ng/mL (0.000-0.055) Total Protein 7.7 g/dL (6.4-8.2) Albumin 4.1 g/dL (3.4-5.0) Albumin/Globulin Ratio 1.1 (1.0-1.7) Urine Collection Type Void Urine Color Yellow Urine Clarity Clear Urine pH 7.0 (<5.0-8.0) Urine Specific [place] 1.010 (1.000-1.030) Urine Protein Negative mg/dL (NEG-TRACE) Urine Glucose (UA) Negative mg/dL (NEG) Urine Ketones (Stick) Negative mg/dL (NEG) Urine Blood Negative (NEG) Urine Nitrite Negative (NEG) Urine Bilirubin Negative (NEG) Urine Urobilinogen Dipstick 0.2 mg/dL (0.2 mg/dL) Urine Leukocyte Esterase Trace (NEG) Urine RBC 0 /HPF (0-2) Urine WBC 1-4 /HPF (0-4) Urine Squamous Epithelial Cells Few /LPF Urine Bacteria Few /HPF (0-FEW) D-Dimer (Kiersten) 0.68 ug/mlFEU (0.00-0.50) Laboratory Tests Test 03/16/21 04:45 Sodium Level 140 mmol/L (136-145) Potassium Level 4.2 mmol/L (3.5-5.1) Chloride Level 106 mmol/L (98-107) Carbon Dioxide Level 26 mmol/L (21-32) Anion Gap 8 (6-14) Blood Urea Nitrogen 22 mg/dL (7-20) Creatinine 1.2 mg/dL (0.6-1.0) Estimated GFR (Cockcroft-Gault) 55.3 Glucose Level 114 mg/dL (70-99) Calcium Level 8.6 mg/dL (8.5-10.1) Assessment/Plan Assessment/Plan IMP DYSPNEA HTN CONTROLLED CKD STAGE 2-CR OF 1.2-1.3 BASELINE PLAN HYDRATION DUE TO CTA PENDING LABS IN AM PULElham LÓPEZ WILL FOLLOW HERNAN HURTADO MD Mar 16, 2021 12:02
--- NOTE | 2021-03-16 13:22 | NUR ---
SW following. Discussed with RN, pt from home alone, room air, regular diet. Pt having a chest CT. Pulmonology and nephrology following. RN advised no SW needs. Possible discharge today. SW will continue to follow.
--- NOTE | 2021-03-16 14:53 | DISCH ---
DISCHARGE INSTRUCTIONS Condition on Discharge Condition on Discharge: Stable Activity After Discharge Activity Instructions for Disc: Activity as tolerated Exercise Instruction after Dis: Walk 15 min, 3 x per day Driving Instructions after Dis: Do not drive today Weight Bearing Status after Di: Full weight bearing Diet after Discharge Diet after Discharge: Cardiac Contacting the DRAndre after DC Call your doctor for: If your condition worsens Follow-Up Follow up with: PCP within 2 weeks of discharge MARIANGEL MARTÍNEZ MD Mar 16, 2021 14:53
[2021-03-16 15:00] VITALS: BP 131/65
--- NOTE | 2021-03-16 17:45 | NUR ---
Pt discharged home with self care. Discharge instructions reviewed and questions were answered. Pt verbalized understanding.
--- NOTE | 2021-03-17 04:07 | CONS ---
DATE OF CONSULTATION: 03/16/2021 REASON FOR CONSULTATION: The patient is seen in pulmonary consultation at the request of Dr. Hercules for abnormal ventilation, perfusion lung scan and possible PE. HISTORY OF PRESENT ILLNESS: The patient is a 60-year-old that woke up out of her sleep. She felt weak. She went to the kitchen and was holding onto the gannon. She also had some right shoulder discomfort. She was slightly short of breath. I specifically asked if she had acute onset of shortness of breath associated with pleuritic type of discomfort, she states no. In the past week or so, she had not been more short of air. She has no prior history of DVT or pulmonary embolism. While during my interview, she took in a deep breath. She continues to have difficulty with pain, mainly on the right side shoulder area. It sounds like it is pleurisy to me. The patient was evaluated in the emergency room, underwent a V/Q scan. I personally reviewed the VQ scan, I think that it is more than likely a low probability scan over the current reading by Dr. Casa Jara that states it is intermediate probability for PE. I reviewed her chest x-ray which revealed no acute cardiopulmonary process. The patient has never smoked. There is no history of asthma. She also had a venous Dopplers of the lower extremity, which was negative. Her D-dimer was elevated at 0.68. PAST MEDICAL HISTORY: Remarkable for fibromyalgia; breast cancer, status post lumpectomy, received adjuvant chemo in 2005. She has a history of stroke in 2006. PAST SURGICAL HISTORY: Previous history of back surgery. REVIEW OF SYSTEMS: CONSTITUTIONAL: No fever or chills. EYES: No change in visual acuity. HENT: No nasal congestion. PULMONARY: As indicated above. In addition, sleep hygiene reveals that she does not snore. There has been no witnessed apnea spells in the morning, she awakens refreshed from her sleep. Lately, she has been experiencing some excessive daytime sleepiness. CARDIAC: The patient has recently had a heart murmur. She had an echocardiogram at [facility], results are known. GASTROINTESTINAL: No nausea, vomiting, diarrhea. GENITOURINARY: No dysuria or frequency. MUSCULOSKELETAL: No localized muscle aches or joint pain. She does have some discomfort from her fibromyalgia. SKIN: No new skin lesions. NEUROLOGIC: No headaches, diplopia or blurred vision. MEDICATIONS: List was reviewed. SOCIAL HISTORY: She denies alcohol, tobacco. ALLERGIES: SHE IS ALLERGIC TO CONTRAST DYE. PHYSICAL EXAMINATION: VITAL SIGNS: Stable. O2 saturation was greater than 92%. She is currently on room air at 100%. HEENT: Eyes, the sclerae are nonicteric. NECK: Jugular venous distention was not elevated. No lymphadenopathy. CHEST: Full expansion. LUNGS: Adequate flow, no wheezes, rales or rhonchi. No rubs. CARDIOVASCULAR: Regular rate and rhythm with a grade II/ systolic ejection murmur. ABDOMEN: Soft, nontender, nondistended, obese. EXTREMITIES: No clubbing, cyanosis, no pitting edema. Homans sign was negative. LABORATORY DATA: As indicated above. V/Q scan was reviewed. Venous Dopplers of the lower extremities were reviewed and negative. IMPRESSION: 1. Pleuritic type of discomfort suspect secondary to pleurisy. 2. Mild shortness of breath. 3. Clinical presentation not compatible with pulmonary embolism. 4. Obesity. 5. Cough related to reflux. 6. Fibromyalgia. 7. Generalized weakness and debility. I reviewed the films with Dr. Silvemran. He agrees with me that the V/Q scan is close to a low probability scan than an intermediate scan. Considering the patient's clinical presentation, which is very low for PE, also considering the venous Doppler has been negative, I do not think that she has had a pulmonary embolism. SHE IS ALLERGIC TO CONTRAST DYE and in addition, her BUN and creatinine are elevated, I think that obtaining a CT angiogram would be more risky than beneficial. At this juncture, I do not recommend treatment for pulmonary embolism. Treat pleurisy. The patient also has a chronic cough secondary to reflux. I do appreciate the privilege in sharing in the patient's care. SUSANA/SMOOTH DR: Alivia TID: [id number]
--- NOTE | 2021-03-19 16:16 | PDOC3 ---
[facility]-Discharge Summary Date of Admission: Date of Admission: Mar 15, 2021 Date of Discharge: Date of Discharge: Mar 16, 2021 Discharge Diagnosis: Discharge Diagnosis: Acute Chest discomfort,, due to pleurisy intermediate probability for pulmonary embolus bilateral patchy perfusion defects Morbid obesity dyslipidemia hypertension, hx breast cancer 15 years ago. 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 stated she woke up with the pain and now feels short of breath because is difficult to breathe because breathing makes the pain worse. denies any tobacco history or lung problems. review of history dyslipidemia hyp ertension, and breast cancer 15 years ago. Denies cough. completed both of her Covid vaccines perfusion scan intermediate probability for pulmonary embolus bilateral patchy perfusion defects d-DIMER elevated 0.68 / CT angiogram in the morning if BUN and creatinine correct with hydration cr 1.3 on admit, will consult nephrology Workup by cardiology and pulmonary was completed and PE was ruled out. Disposition: Disposition/Orders: D/C to Home Activity: Activity: Resume previous activity Diet: Diet: Cardiac Medications: Home Meds Reported Medications Hydrocodone Bit/Acetaminophen (HYDROCODONE-APAP 10-325 ) 1 Tab Tablet, 1 TAB PO PRN Q6HRS PRN for PAIN, TAB 0 Refills 03/15/21 Amlodipine Besylate (AMLODIPINE BESYLATE) 10 Mg Tablet, 10 MG PO DAILY for hypertension, TAB 03/15/21 Pantoprazole Sodium (PANTOPRAZOLE SODIUM ) 40 Mg Tablet.dr, 40 MG PO DAILYAC for GERD, TAB 03/15/21 Venlafaxine Hcl (VENLAFAXINE HCL ER) 75 Mg Tab.er.24, 1 TAB PO DAILY for depression for 30 Days, #30 TAB 0 Refills 03/15/21 Pregabalin (LYRICA) 75 Mg Capsule, 1 CAP PO BID for neuropathy, #60 CAP 1 Refill 03/15/21 Aspirin (ASPIRIN EC) 81 Mg Tablet.dr, 1 TAB PO DAILY for stroke prevention, #30 TAB 3 Refills 03/15/21 Atorvastatin Calcium (LIPITOR) 20 Mg Tablet, 20 MG PO DAILY for FOR CHOLESTEROL, #30 TAB 0 Refills 03/04/14 Clonidine Hcl (CLONIDINE HCL) 0.3 Mg Tablet, 0.3 MG PO BID, TAB 03/04/14 Zolpidem Tartrate (AMBIEN) 10 Mg Tablet, 10 MG PO HS PRN for INSOMNIA, TAB 0 Refills 03/04/14 Bupropion Hcl (BUPROPION XL) 150 Mg Tab.er.24h, 150 MG PO DAILY 03/04/14 Discontinued Reported Medications Aspirin/Calcium Carbonate/Mag (ASPIRIN BUFFERED 325 MG TAB) 325 Mg Tablet, 325 MG PO DAILY 03/04/14 Atenolol (ATENOLOL) 50 Mg Tablet, 50 MG PO BID, TAB 03/04/14 Sertraline Hcl (ZOLOFT) 100 Mg Tablet, 100 MG PO DAILY for ANTI-DEPRESSANT, TAB 0 Refills 03/04/14 Amlodipine Besylate (NORVASC) 10 Mg Tablet, 10 MG PO BID, TAB 03/04/14 Scheduled Amlodipine Besylate (Amlodipine Besylate), 10 MG PO DAILY, (Reported) Aspirin (Aspirin Ec), 1 TAB PO DAILY, (Reported) Atorvastatin Calcium (Lipitor), 20 MG PO DAILY, (Reported) Bupropion Hcl (Bupropion Xl), 150 MG PO DAILY, (Reported) Clonidine Hcl (Clonidine Hcl), 0.3 MG PO BID, (Reported) Pantoprazole Sodium (Pantoprazole Sodium ), 40 MG PO DAILYAC, (Reported) Pregabalin (Lyrica), 1 CAP PO BID, (Reported) Venlafaxine Hcl (Venlafaxine Hcl Er), 1 TAB PO DAILY, (Reported) Scheduled PRN Hydrocodone Bit/Acetaminophen (Hydrocodone-Apap 10-325 ), 1 TAB PO PRN Q6HRS PRN for PAIN, (Reported) Zolpidem Tartrate (Ambien), 10 MG PO HS PRN for INSOMNIA, (Reported) Discontinued Medications Amlodipine Besylate (Norvasc), 10 MG PO BID, (Reported) Aspirin/Calcium Carbonate/Mag (Aspirin Buffered 325 Mg Tab), 325 MG PO DAILY, (Reported) Atenolol (Atenolol), 50 MG PO BID, (Reported) Sertraline Hcl (Zoloft), 100 MG PO DAILY, (Reported) Total Time: Total Time: Total time spent was 35 minutes in preparing scripts, discharge planning with SW and RN, and preparing this discharge summary. Patient seen and examined on day of discharge. Justicifation of Admission Dx: Justifications for Admission: Justification of Admission Dx: Yes Respiratory Failure: Severe Resp Distress MARIANGEL MARTÍNEZ MD Mar 19, 2021 16:16
== END 2021-03-16 17:40 | disposition home or self-care (01) ==
LOC: ER 09:23 → 6 SOUTH 13:48
PROVIDERS: ADMIT Family Medicine; ATTEND Family Medicine
DX: R07.89 Other chest pain (principal); I12.9 Hypertensive chronic kidney disease with stage 1 through stage 4 chronic kidney disease, or unspecified chronic kidney disease; N18.2 Chronic kidney disease, stage 2 (mild); N17.9 Acute kidney failure, unspecified; E78.5 Hyperlipidemia, unspecified; K21.9 Gastro-esophageal reflux disease without esophagitis; I63.9 Cerebral infarction, unspecified; J18.9 Pneumonia, unspecified organism; M51.36 Other intervertebral disc degeneration, lumbar region; M19.90 Unspecified osteoarthritis, unspecified site; M79.7 Fibromyalgia; F32.9 Major depressive disorder, single episode, unspecified; E78.00 Pure hypercholesterolemia, unspecified; E66.9 Obesity, unspecified; N39.0 Urinary tract infection, site not specified; R09.1 Pleurisy; Z85.3 Personal history of malignant neoplasm of breast; Z86.73 Personal history of transient ischemic attack (TIA), and cerebral infarction without residual deficits; Z91.041 Radiographic dye allergy status; Z92.21 Personal history of antineoplastic chemotherapy; Z96.659 Presence of unspecified artificial knee joint; Z90.49 Acquired absence of other specified parts of digestive tract; Z79.82 Long term (current) use of aspirin; Z68.37 Body mass index [BMI] 37.0-37.9, adult
CPT/HCPCS: 36415; 71046; 71275; 78582; 80048; 80053; 81001; 84484; 85025; 85379; 87086; 93005; 93970; 96361; 96372; 96374; 96375; 96376; 99285; A9540; A9558; G0378; J1200; J1650; J1885; J2930; J3010; J3490; J7512; G0379

== ENCOUNTER 2021-04-17 16:52 | Observation (INO) | payer MEDICARE ==
[~2021-04-17] VITALS: Ht 167.6 cm; Wt 120.8 kg
[~2021-04-17 16:52] MED LIST changes: +AMLO-187 PO; +ASPI-886 PO; +HYDR-2769 PO; +PREG-9 PO; +VENL75TA2 PO
--- NOTE | 2021-04-17 17:08 | EKG ---
[facility] [address] [place] [address] Test Date: 2021-04-17 Test Time: 17:05:31 Pat Name: FRANK JAY Department: Room: Gender: F Accounts Payable Assistant: : 1960 Requested By: KORIN DURBIN Order Number: [id number] Reading MD: Measurements Intervals [place] Rate: 86 P: 49 WV: 160 QRS: 0 QRSD: 94 T: 97 QT: 328 QTc: 395 Interpretive Statements SINUS RHYTHM VENTRICULAR PREMATURE COMPLEX(ES) LEFT ATRIAL ABNORMALITY LEFTWARD AXIS T ABNORMALITY IN ANTERIOR LEADS ABNORMAL ECG RI6.02 No previous ECG available for comparison
--- NOTE | 2021-04-17 17:10 | PHYS DOC ---
Past Medical History Past Medical History: High Cholesterol, Hypertension Past Surgical History: Cancer Surgery Additional Past Surgical Histo: left masectomy Smoking Status: Never Smoker Alcohol Use: None Drug Use: None General Adult EDM: Chief Complaint: CHEST PAIN Problems: (1) Chest pain at rest HPI: HPI: 60-year-old female with a history of hypertension, hyperlipidemia, obesity presents to the emergency department complaining of chest pain in the middle of her chest associate with some shortness of breath. She reports the chest pain does not radiate, feels like a pinching sensation, associated with some palpitations as well. She states the pain started around 1 PM today while she was at rest. She reports the pain is intermittent, and rates pain at mild at this time. She denies any history of heart attacks, coronary artery disease diagnosis in the past. The patient denies radiation of pain, sweating, nausea, vomiting, or dizziness. Review of Systems: Review of Systems: Constitutional: Denies fever or chills. Eyes: Denies change in vision, pain. HENT: Denies congestion or sore throat. Respiratory: Denies cough, admits to shortness of breath. Cardiovascular: Admits to chest pain, edema. GI: Denies abdominal pain, nausea. : Denies change in urination, dysuria. Musculoskeletal: Denies extremity pain, or trauma. Skin: Denies rash, skin change. Neurologic: Denies headache, focal weakness. Psychiatric: Denies depression or anxiety. All other systems reviewed as negative except for what was mentioned in the HPI. Heart Score: C/O Chest Pain: Yes HEART Score for Chest Pain: HEART Score for Chest Pain Response (Comments) Value History Moderately Suspicious 1 ECG Nonspecific Repolarizatio 1 Age >45 - < 65 1 Risk Factors 1 or 2 Risk Factors 1 Total 4 Family History: Family History: Noncontributory Current Medications: My Orders - KORIN DURBIN DO Procedure Category Date Status Time Vital Signs Monitoring ER 04/17/21 Transmitted 16:57 Blood Pressure ER 04/17/21 Transmitted Monitoring 16:57 Cardiac Monitoring ER 04/17/21 Transmitted 16:57 Continuous Pulse Ox ER 04/17/21 Transmitted 16:57 Basic Metabolic Panel LAB 04/17/21 In Process 16:57 Cbc W [employer] LAB 04/17/21 In Process 16:57 Portable Chest 1v RAD 04/17/21 Taken 16:57 Nt-Pro Bnp LAB 04/17/21 In Process 16:57 Tropon[facility] LAB 04/17/21 In Process 16:57 [facility] LAB 04/17/21 Logged 19:57 T[facility] LAB 04/17/21 Logged 22:57 12 Lead Ekg EKG 04/17/21 Complete 16:57 12 Lead Ekg EKG 04/17/21 Logged 17:27 Aspirin Chewable PHA 04/17/21 Complete (Aspirin Chewable) 17:30 Nitroglycerin PHA 04/17/21 In Process Sublingual (Nitrostat) 17:30 Manual Differential LAB 04/17/21 In Process 17:20 Allergies: Allergies: Allergies Coded Allergies Type Severity Reaction Last Updated Verified Iodinated Contrast Media Allergy Intermediate Rash 10/19/15 Yes iodine Allergy Intermediate Hives 10/18/15 Yes morphine Allergy Intermediate Rash 10/18/15 Yes Physical Exam: PE: Constitutional: No acute distress, non-toxic appearance. HENT: Atraumatic, bilateral external ears normal, nose normal. Eyes: PERRLA, EOMI, conjunctiva normal, no discharge. Neck: Normal range of motion, supple, no stridor. Cardiovascular: Heart rate regular rhythm. 2+ radial pulses Lungs & Thorax: No respiratory distress, symmetrical expansion. Bilateral breath sounds clear to auscultation Abdomen: Soft, no tenderness Skin: Warm, dry. Extremities: No tenderness, no cyanosis, ROM intact, 2+ lower extremity edema. Neurologic: Alert and oriented X 3, normal motor function, normal sensory function, no focal deficits noted. Non ataxic gait. GCS 15. Psychologic: Affect normal, judgment normal, mood normal. Current Patient Data: Vital Signs: Vital Signs Date Time Temp Pulse Resp B/P (MAP) Pulse Ox O2 Delivery O2 Flow Rate FiO2 04/17/21 17:00 98.3 87 16 157/83 (87) 97 Room Air 98.3 EKG: EKG: Normal sinus rhythm rate of 86, occasional PVC, axis within normal limits, intervals within normal limits, there is T wave flattening in V2 3, slight T wave inversion in V4 5 6. No STEMI. Radiology/Procedures: Radiology/Procedures: INDICATION: Reason: chest pain / Spl. Instructions: / History: COMPARISON: March 15, 2021 FINDINGS: Single view of chest obtained. Degenerative changes of the spine and shoulders. Cardiac silhouette is mildly prominent in size. Limited evaluation of left lung base secondary to overlying cardiac silhouette obscuring but no definite new region of consolidation elsewhere in the lungs. IMPRESSION: * No definite new region of consolidation. Course & Med Decision Making: Course & Med Decision Making Patient with heart score of 4, we will seek admission for observation for rule out ACS. Patient otherwise was given nitroglycerin for pain, ASA patient is hemodynamically stable without signs or symptoms for pulmonary embolism. Discussed with Dr. Jones who will admit patient Departure Departure Impression: Primary Impression: Chest pain at rest Disposition: ADMITTED INPATIENT (Robert) Condition: STABLE Referrals: ORACIO ACE (PCP) KORIN DURBIN DO Apr 17, 2021 17:10
[2021-04-17 17:30] LABS: BASO % 0 % (0-3); EOS # 0.2 x10^3/uL (0.0-0.7); EOS % 3 % (0-3); HEMATOCRIT 34.6 % (36.0-47.0); HEMOGLOBIN 11.5 g/dL (12.0-15.5); LYMPH # 2.3 x10^3/uL (1.0-4.8); LYMPH % 45 % (24-48); MEAN CORPUSCULAR HEMOGLOBIN 28 pg (25-35); MEAN CORPUSCULAR HGB CONC 33 g/dL (31-37); MEAN CORPUSCULAR VOLUME 84 fL (79-100); MONO # 0.9 x10^3/uL (0.0-1.1); MONO % 18 % (0-9); NEUT # 1.7 x10^3/uL (1.8-7.7); NEUT % 34 % (31-73); PLATELET COUNT 255 x10^3/uL (140-400); RED CELL DISTRIBUTION WIDTH 15.7 % (11.5-14.5); WHITE BLOOD COUNT 5.2 x10^3/uL (4.0-11.0)
[2021-04-17] MEDS ORDERED: NITROGLYCERIN SUBLINGUAL 0.4 MG BOTTLE OF 25. SL PRN (17:30)
[2021-04-17] MEDS ORDERED: ASPIRIN CHEWABLE 81 MG TABLET. PO ONE (17:30)
--- NOTE | 2021-04-17 17:44 | RAD ---
INDICATION: Reason: chest pain / Spl. Instructions: / History: COMPARISON: March 15, 2021 FINDINGS: Single view of chest obtained. Degenerative changes of the spine and shoulders. Cardiac silhouette is mildly prominent in size. Limited evaluation of left lung base secondary to overlying cardiac silhouette obscuring but no defin ite new region of consolidation elsewhere in the lungs. IMPRESSION: * No definite new region of consolidation. Electronically signed by: Casa Jara MD (04/17/2021 5:41 PM) [id number]
[2021-04-17 17:46] LABS: CALCIUM 9.3 mg/dL (8.5-10.1); CREATININE 1.1 mg/dL (0.6-1.0); GFR 61.1; POTASSIUM 3.9 mmol/L (3.5-5.1)
[2021-04-17 17:57] LABS: % BASOS 1 % (0-3); % EOS 4 % (0-5); % LYMPHS 44 % (24-48); % MONOS 14 % (0-10); % SEGS 37 % (35-66); PLT ESTIMATE ADEQUATE (ADEQUATE)
--- NOTE | 2021-04-17 17:58 | PDOC1 ---
History and Physical Date of Admission Date of Admission DATE: 04/17/21 TIME: 17:57 Identification/Chief Complaint Chief Complaint Left sided chest pain Source Source: Patient History of Present Illness History of Present Illness Ms Ruiz is a 60yo F w/ PMHx fibromyalgia, breast ca s/p left mastectomy and neoadjuvant therapy in 2005, prior CVA in 2005, HTN, HLD, chronic back pain, GERD who presents to the ED c/o sharp left sided chest pain she experienced while giving her 4 year old grandchild a bath. Pain is sharp, stabbing in nature in the 4th intercostal space on the left parasternal border. Improved a bit with pressure, worsened with repositioning. No radiation. BP not elevated significantly. Some associated nausea. She and her daughter also c/o bilateral LE swelling which is R>L, no erythema or warmth noted. She does have significant GERD history and has been instructed to cut out alcohol in the evening and not to lay down or eat late. She does continue to have a glass of wine before she falls asleep, but does comply with eating earlier in the evening. No recent travel or sick contacts. She had a negative cardiac stress test in 2016 and had similar pain with shortness of breath 1 month ago and underwent negative CTPA and bilateral venous dopplers. Labs with no significant changes from 1 month prior, mild anemia, Cr elevated at 1.1 consistent with likely CKD 2a history, troponin negative. EKG NSR rate of 86bpm with some PACs, left axis deviation and TWI in anterior leads unchanged from prior. No ST segment abnormalities Chest radiograph with no acute findings. Given 325mg ASA and 1x NTG with improvement in symptoms, though she did c/o headache. Admitted for further observation. 1. Pleuritic type of discomfort suspect secondary to pleurisy. 2. Mild shortness of breath. 3. Clinical presentation not compatible with pulmonary embolism. 4. Obesity. 5. Cough related to reflux. 6. Fibromyalgia. 7. Generalized weakness and debility. Past Medical History Cardiovascular: HTN, Hyperlipidemia Pulmonary: Pneumonia CENTRAL NERVOUS SYSTEM: CVA GI: No pertinent hx Heme/Onc: Cancer Hepatobiliary: No pertinent hx Psych: Depression Musculoskeletal: Osteoarthritis Rheumatologic: Fibromyalgia Infectious disease: No pertinent hx, Other Renal/: Chronic renal insuff, UTI Endocrine: No pertinent hx Past Surgical History Past Surgical History: Appendectomy, Total knee replacement, Tonsillectomy, Other Family History Family History: Hypertension, Stroke Social History Smoke: No ALCOHOL: none Drugs: None Current Problem List Problem List Problems Medical Problems: (1) Chest pain at rest Status: Acute Current Medications Current Medications Current Medications Aspirin (Aspirin Chewable) 324 mg 1X ONCE PO ; Start 04/17/21 at 17:30; Stop 04/17/21 at 17:31; Status DC Nitroglycerin (Nitrostat) 0.4 mg PRN Q5MIN PRN SL CHEST PAIN Last administered on 04/17/21at 17:56; Start 04/17/21 at 17:30 Ondansetron HCl (Zofran) 4 mg PRN Q8HRS PRN IVP NAUSEA/VOMITING; Start 04/17/21 at 18:00; Stop 04/18/21 at 17:59 Active Scripts Active Reported Hydrocodone-Apap 10-325 (Hydrocodone Bit/Acetaminophen) 1 Tab Tablet 1 Tab PO PRN Q6HRS PRN Amlodipine Besylate 10 Mg Tablet 10 Mg PO DAILY Pantoprazole Sodium (Pantoprazole Sodium) 40 Mg Tablet.dr 40 Mg PO DAILYAC Venlafaxine Hcl Er (Venlafaxine Hcl) 75 Mg Tab.er.24 1 Tab PO DAILY 30 Days Lyrica (Pregabalin) 75 Mg Capsule 1 Cap PO BID Aspirin Ec (Aspirin) 81 Mg Tablet.dr 1 Tab PO DAILY Lipitor (Atorvastatin Calcium) 20 Mg Tablet 20 Mg PO DAILY Clonidine Hcl 0.3 Mg Tablet 0.3 Mg PO BID Ambien (Zolpidem Tartrate) 10 Mg Tablet 10 Mg PO HS PRN Bupropion Xl (Bupropion Hcl) 150 Mg Tab.er.24h 150 Mg PO DAILY Allergies Allergies: Coded Allergies: Iodinated Contrast Media (Verified Allergy, Intermediate, Rash, 10/19/15) iodine (Verified Allergy, Intermediate, Hives, 10/18/15) ITCHING morphine (Verified Allergy, Intermediate, Rash, 10/18/15) ITCHING ROS General: YES: Fatigue, Malaise; No: Chills, Night Sweats, Appetite, Other PSYCHOLOGICAL ROS: YES: Anxiety; No: Behavioral Disorder, Concentration difficultie, Decreased libido, Depression, Disorientation, Hallucinations, Hostility, Irritablity, Memory d ifficulties, Mood Swings, Obsessive thoughts, Physical abuse, Sexual abuse, Sleep disturbances, Suicidal ideation, Other Eyes: No Blurry vision, No Decreased vision, No Double vision, No Dry eyes, No Excessive tearing, No Eye Pain, No Itchy Eyes, No Loss of vision, No Photophobia, No Scotomata, No Uses contacts, No Uses glasses, No Other HEENT: No: Heacaches, Visual Changes, Hearing change, Nasal congestion, Nasal discharge, Oral lesions, Sinus pain, Sore Throat, Epistaxis, Sneezing, Snoring, Tinnitus, Vertigo, Vocal changes, Other ALLERGY AND IMMUNOLOGY: No: Hives, Insect Bite Sensitivity, Itchy/Watery Eyes, Nasal Congestion, Post Nasal Drip, Seasonal Allergies, Other Hematological and Lymphatic: No: Bleeding Problems, Blood Clots, Blood Transfusions, Brusing, Night Sweats, Pallor, Swollen Lymph Nodes, Other ENDOCRINE: No: Breast Changes, Galactorrhea, Hair Pattern Changes, Hot Flashes, Malaise/lethargy, Mood Swings, Palpitations, Polydipsia/polyuria, Skin Changes, Temperature Intolerance, Unexpected Weight Changes, Other Breast: No New/Changing Breast Lumps, No Nipple changes, No Nipple discharge, No Other Respiratory: No: Cough, Hemoptysis, Orthopnea, Pleuritic Pain, Shortness of breath, SOB with excertion, Sputum Changes, Stridor, Tachypnea, Wheezing, Other Cardiovascular: yes Chest Pain; No Palpitations, No Orthopnea, No Paroxysmal Noc. Dyspnea, No Edema, No Lt Headedness, No Other Gastrointestinal: No Nausea, No Vomiting, No Abdominal Pain, No Diarrhea, No Constipation, No Melena, No Hematochezia, No Other Genitourinary: No Dysuria, No Frequency, No Incontinence, No Hematuria, No Retention, No Discharge, No Urgency, No Pain, No Flank Pain, No Other, No , No , No , No , No , No , No Musculoskeletal: Yes Muscle Pain; No Gait Disturbance, No Joint Pain, No Joint Stiffness, No Joint Swelling, No Muscular Weakness, No Pain In:, No Swelling In:, No Other Neurological: No Behavorial Changes, No Bowel/Bladder ControlChng, No Confusion, No Dizziness, No Gait Disturbance, No Headaches, No Impaired Coord/balance, No Memory Loss, No Numbness/Tingling, No Seizures, No Speech Problems, No Tremors, No Visual Changes, No Weakness, No Other Skin: No Dry Skin, No Eczema, No Hair Changes, No Lumps, No Mole Changes, No Mottling, No Nail Changes, No Pruritus, No Rash, No Skin Lesion Changes, No Other, No Acne Physical Exam General: Alert, Oriented X3, Cooperative, No acute distress HEENT: Atraumatic, PERRLA, EOMI, Mucous membr. moist/pink Lungs: Clear to auscultation, Normal air movement Heart: S1S2, RRR, no thrills, no rubs, no gallops, no murmurs Abdomen: Normal bowel sounds, Soft, No tenderness, No hepatosplenomegaly, No masses Rectal Exam: not examined Extremities: No clubbing, No cyanosis, No edema, Normal pulses, No tenderness/swelling Skin: No rashes, No breakdown, No significant lesion Neuro: Normal gait, Normal speech, Strength at 5/5 X4 ext, Normal tone, Sensation intact, Cranial nerves 3-12 NL, Reflexes 2+ Psych/Mental Status: Mental status NL, Mood NL Vitals Vitals Vital Signs Date Time Temp Pulse Resp B/P (MAP) Pulse Ox O2 Delivery O2 Flow Rate FiO2 04/17/21 17:56 87 132/74 04/17/21 17:00 98.3 16 97 Room Air 98.3 Labs Labs Laboratory Tests Test 04/17/21 17:20 White Blood Count 5.2 x10^3/uL (4.0-11.0) Red Blood Count 4.10 x10^6/uL (3.50-5.40) Hemoglobin 11.5 g/dL (12.0-15.5) Hematocrit 34.6 % (36.0-47.0) Mean Corpuscular Volume 84 fL (79-100) Mean Corpuscular Hemoglobin 28 pg (25-35) Mean Corpuscular Hemoglobin Concent 33 g/dL (31-37) Red Cell Distribution Width 15.7 % (11.5-14.5) Platelet Count 255 x10^3/uL (140-400) Neutrophils (%) (Auto) 34 % (31-73) Lymphocytes (%) (Auto) 45 % (24-48) Monocytes (%) (Auto) 18 % (0-9) Eosinophils (%) (Auto) 3 % (0-3) Basophils (%) (Auto) 0 % (0-3) Neutrophils # (Auto) 1.7 x10^3/uL (1.8-7.7) Lymphocytes # (Auto) 2.3 x10^3/uL (1.0-4.8) Monocytes # (Auto) 0.9 x10^3/uL (0.0-1.1) Eosinophils # (Auto) 0.2 x10^3/uL (0.0-0.7) Basophils # (Auto) 0.0 x10^3/uL (0.0-0.2) Sodium Level 141 mmol/L (136-145) Potassium Level 3.9 mmol/L (3.5-5.1) Chloride Level 106 mmol/L (98-107) Carbon Dioxide Level 30 mmol/L (21-32) Anion Gap 5 (6-14) Blood Urea Nitrogen 13 mg/dL (7-20) Creatinine 1.1 mg/dL (0.6-1.0) Estimated GFR (Cockcroft-Gault) 61.1 Glucose Level 100 mg/dL (70-99) Calcium Level 9.3 mg/dL (8.5-10.1) Troponin I Quantitative < 0.017 ng/mL (0.000-0.055) Laboratory Tests Test 04/17/21 17:20 White Blood Count 5.2 x10^3/uL (4.0-11.0) Red Blood Count 4.10 x10^6/uL (3.50-5.40) Hemoglobin 11.5 g/dL (12.0-15.5) Hematocrit 34.6 % (36.0-47.0) Mean Corpuscular Volume 84 fL (79-100) Mean Corpuscular Hemoglobin 28 pg (25-35) Mean Corpuscular Hemoglobin Concent 33 g/dL (31-37) Red Cell Distribution Width 15.7 % (11.5-14.5) Platelet Count 255 x10^3/uL (140-400) Neutrophils (%) (Auto) 34 % (31-73) Lymphocytes (%) (Auto) 45 % (24-48) Monocytes (%) (Auto) 18 % (0-9) Eosinophils (%) (Auto) 3 % (0-3) Basophils (%) (Auto) 0 % (0-3) Neutrophils # (Auto) 1.7 x10^3/uL (1.8-7.7) Lymphocytes # (Auto) 2.3 x10^3/uL (1.0-4.8) Monocytes # (Auto) 0.9 x10^3/uL (0.0-1.1) Eosinophils # (Auto) 0.2 x10^3/uL (0.0-0.7) Basophils # (Auto) 0.0 x10^3/uL (0.0-0.2) Sodium Level 141 mmol/L (136-145) Potassium Level 3.9 mmol/L (3.5-5.1) Chloride Level 106 mmol/L (98-107) Carbon Dioxide Level 30 mmol/L (21-32) Anion Gap 5 (6-14) Blood Urea Nitrogen 13 mg/dL (7-20) Creatinine 1.1 mg/dL (0.6-1.0) Estimated GFR (Cockcroft-Gault) 61.1 Glucose Level 100 mg/dL (70-99) Calcium Level 9.3 mg/dL (8.5-10.1) Troponin I Quantitative < 0.017 ng/mL (0.000-0.055) Images Images Chest radiograph: Degenerative changes of the spine and shoulders. Cardiac silhouette is mildly prominent in size. Limited evaluation of left lung base secondary to overlying cardiac silhouette obscuring but no definite new region of consolidation elsewhere in the lungs. IMPRESSION: * No definite new region of consolidation. VTE Prophylaxis Ordered VTE Prophylaxis Devices: Yes VTE Pharmacological Prophylaxi: Yes Assessment/Plan Assessment/Plan A/P: Chest pain - atypical. Concerning as it is relieved with NTG. Telemetry ordered. trend troponins. Likely GERD related complicated by chronic pain Bilateral LE edema - will order repeat venous dopplers given asymmetry. If negative would recommend decreasing or discontinuing amlodipine to see if this helps Chronic pain - s/p lumbar laminectomy, treated for fibromyalgia remote Left breast cancer, status post lumpectomy, received adjuvant chemo in 2005 CVA - 2006 no residual deficits. 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
[2021-04-17 18:00] LABS: POLYCHROMASIA SLIGHT
[2021-04-17] MEDS ORDERED: ONDANSETRON PF 4 MG/2 ML VIAL. IVP PRN ×2 (18:00→18:15)
[2021-04-17] MEDS ORDERED: ACETAMINOPHEN 325 MG TABLET. PO PRN (18:15)
[2021-04-17] MEDS ORDERED: traMADol 50 MG TABLET PO PRN (18:15)
[2021-04-17 18:30] VITALS: BP 113/73
--- NOTE | 2021-04-17 18:45 | NUR ---
The patient, FRANK JAY, 60 y/o, F admitted by PAOLO CALDERÓN MD, was admitted to room 670 at 1820. Patient settled in room, vitals taken, heart monitor placed, report given to SHON Espinoza
[2021-04-17] MEDS ORDERED: ISOS30TA68 PO (18:54)
[2021-04-17] MEDS ORDERED: POTASSIUM BICARB 10 MEQ EFFERVESCENT TABLET. PO ONE (19:00)
[2021-04-17] MEDS ORDERED: MAGNESIUM SULFATE 1GM 100 ML IV ONE (19:00)
[2021-04-17] MEDS ORDERED: ZOLPIDEM 5 MG TABLET. PO PRN (20:00)
[2021-04-17] MEDS: cloNIDine HCL 0.3 MG TABLET PO SCH ×2 (20:16→20:18)
[2021-04-17] MEDS: HYDROcodone/APAP 10/325 1 TAB TABLET PO PRN (20:17)
[2021-04-17] MEDS: PREGABALIN 75 MG CAPSULE PO SCH (20:17)
--- NOTE | 2021-04-17 20:41 | RAD ---
INDICATION: Reason: Bilateral lower extremity edema / Spl. Instructions: / History: COMPARISON: March 15, 2021 TECHNIQUE: Grayscale, color and doppler ultrasound images were obtained of the bilateral lower extrem ity venous vasculature. There is some limited visualization secondary to overlying soft tissues obscu ring. RIGHT: No thrombus identified in the common femoral vein, femoral vein, popliteal vein or visualized calf ve ins. LEFT: No thrombus identified in the common femoral vein, femoral vein, popliteal vein or visualized calf ve ins. IMPRESSION: * No thrombus identified in deep venous system of bilateral lower extremities. * Edema of soft tissues. Electronically signed by: Casa Jara MD (04/17/2021 8:39 PM) [id number]
[2021-04-17] MEDS ORDERED: ATORVASTATIN CALCIUM 20 MG TABLET PO SCH (21:00)
[2021-04-17 23:10] VITALS: BP 123/80
[2021-04-18 02:00] VITALS: BP 134/79
[2021-04-18 07:00] VITALS: BP 131/80
[2021-04-18] MEDS ORDERED: PANTOPRAZOLE 40 MG TABLET.DR. PO SCH (07:30)
--- NOTE | 2021-04-18 07:54 | PDOC ---
[employer] PROGRESS NOTE Date of Service DOS: DATE: 04/18/21 TIME: 07:53 Chief Complaint Chief Complaint A/P: Chest pain - atypical. Concerning as it is relieved with NTG. Telemetry ordered. trend troponins. Likely GERD related complicated by chronic pain Bilateral LE edema - will order repeat venous dopplers given asymmetry. If negative would recommend decreasing or discontinuing amlodipine to see if this helps Chronic pain - s/p lumbar laminectomy, treated for fibromyalgia remote Left breast cancer, status post lumpectomy, received adjuvant chemo in 2005 CVA - 2005 no residual deficits. 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 Pain is sharp, stabbing in nature in the 4th intercostal space on the left parasternal border. Improved a bit with pressure, worsened with repositioning. No radiation. BP not elevated significantly. Some associated nausea. She and her daughter also c/o bilateral LE swelling which is R>L, no erythema or warmth noted. She does have significant GERD history and has been instructed to cut out alcohol in the evening and not to lay down or eat late. She does continue to have a glass of wine before she falls asleep, but does comply with eating earlier in the evening. No recent travel or sick contacts. She had a negative cardiac stress test in 2016 and had similar pain with shortne ss of breath 1 month ago and underwent negative CTPA and bilateral venous dopplers. Labs with no significant changes from 1 month prior, mild anemia, Cr elevated at 1.1 consistent with likely CKD 2a history, troponin negative. EKG NSR rate of 86bpm with some PACs, left axis deviation and TWI in anterior leads unchanged from prior. No ST segment abnormalities Chest radiograph with no acute findings. Given 325mg ASA and 1x NTG with improvement in symptoms, though she did c/o headache. Admitted for further observation. Troponin negative x3 overnight. Negative venous dopplers of legs. Pain is resolved likely musculoskeletal. Consults: Cardiology Vitals/I&O Vitals/I&O: Vital Signs Date Time Temp Pulse Resp B/P (MAP) Pulse Ox O2 Delivery O2 Flow Rate FiO2 04/18/21 02:00 99.0 85 20 134/79 (97) 96 Room Air 99.0 I & O 04/17/21 04/17/21 04/18/21 15:00 23:00 07:00 Intake Total 100 ml 500 ml Output Total 650 ml 1700 ml Balance -550 ml -1200 ml Physical Exam General: Alert, Oriented X3, Cooperative, No acute distress Abdomen: Normal bowel sounds, Soft, No tenderness, No hepatosplenomegaly, No masses Extremities: No clubbing, No cyanosis, No edema, Normal pulses, No tenderness/swelling Skin: No rashes, No breakdown, No significant lesion Labs Labs: Laboratory Tests Test 04/17/21 17:20 04/17/21 19:50 04/17/21 22:12 04/18/21 06:50 White Blood Count 5.2 x10^3/uL (4.0-11.0) Red Blood Count 4.10 x10^6/uL (3.50-5.40) Hemoglobin 11.5 g/dL (12.0-15.5) Hematocrit 34.6 % (36.0-47.0) Mean Corpuscular Volume 84 fL (79-100) Mean Corpuscular Hemoglobin 28 pg (25-35) Mean Corpuscular Hemoglobin Concent 33 g/dL (31-37) Red Cell Distribution Width 15.7 % (11.5-14.5) Platelet Count 255 x10^3/uL (140-400) Neutrophils (%) (Auto) 34 % (31-73) Lymphocytes (%) (Auto) 45 % (24-48) Monocytes (%) (Auto) 18 % (0-9) Eosinophils (%) (Auto) 3 % (0-3) Basophils (%) (Auto) 0 % (0-3) Neutrophils # (Auto) 1.7 x10^3/uL (1.8-7.7) Lymphocytes # (Auto) 2.3 x10^3/uL (1.0-4.8) Monocytes # (Auto) 0.9 x10^3/uL (0.0-1.1) Eosinophils # (Auto) 0.2 x10^3/uL (0.0-0.7) Basophils # (Auto) 0.0 x10^3/uL (0.0-0.2) Segmented Neutrophils % 37 % (35-66) Lymphocytes % 44 % (24-48) Monocytes % 14 % (0-10) Eosinophils % 4 % (0-5) Basophils % 1 % (0-3) Platelet Estimate Adequate (ADEQUATE) Polychromasia Slight Sodium Level 141 mmol/L (136-145) Potassium Level 3.9 mmol/L (3.5-5.1) Chloride Level 106 mmol/L (98-107) Carbon Dioxide Level 30 mmol/L (21-32) Anion Gap 5 (6-14) Blood Urea Nitrogen 13 mg/dL (7-20) Creatinine 1.1 mg/dL (0.6-1.0) Estimated GFR (Cockcroft-Gault) 61.1 Glucose Level 100 mg/dL (70-99) Calcium Level 9.3 mg/dL (8.5-10.1) Magnesium Level 1.9 mg/dL (1.8-2.4) Troponin I Quantitative < 0.017 ng/mL (0.000-0.055) < 0.017 ng/mL (0.000-0.055) < 0.017 ng/mL (0.000-0.055) NE-Peb-J-Type Natriuretic Peptide 71 pg/mL (0-124) Triglycerides Level 38 mg/dL (0-150) Cholesterol Level 196 mg/dL (0-200) LDL Cholesterol, Calculated 88 mg/dL (0-100) VLDL Cholesterol, Calculated 8 mg/dL (0-40) Non-HDL Cholesterol Calculated 96 mg/dL (0-129) HDL Cholesterol 100 mg/dL (40-60) Cholesterol/HDL Ratio 2.0 Assessment and Plan Assessmemt and Plan Problems Medical Problems: (1) Chest pain at rest Status: Acute Comment Review of Relevant I have reviewed the following items guillermo (where applicable) has been applied. Medications: Current Medications Medications (Trade) Dose Ordered Sig/Adrian Route PRN Reason Start Time Stop Time Status Last Admin Dose Admin Nitroglycerin (Nitrostat) 0.4 mg PRN Q5MIN PRN SL CHEST PAIN 04/17/21 17:30 04/17/21 17:56 Tramadol HCl (Ultram) 50 mg PRN Q6HRS PRN PO MODERATE-SEVERE PAIN 04/17/21 18:15 04/17/21 23:24 Magnesium Sulfate/ Dextrose 100 ml @ 100 mls/hr 1X ONCE IV 04/17/21 19:00 04/17/21 19:59 DC 04/17/21 20:15 Potassium Bicarbonate (Potassium Effervescent Tablet) 10 meq 1X ONCE PO 04/17/21 19:00 04/17/21 19:01 DC 04/17/21 20:16 Acetaminophen/ Hydrocodone Bitart (Lortab 10/325) 1 tab PRN Q6HRS PRN PO PAIN 04/17/21 19:45 04/17/21 20:17 Pregabalin (Lyrica) 75 mg BID PO 04/17/21 21:00 04/17/21 20:17 Zolpidem Tartrate (Ambien) 5 mg PRN QHS PRN PO INSOMNIA, MAY REPEAT X1 04/17/21 20:00 04/17/21 20:50 Justifications for Admission Other Justification CHEST PAIN, PAOLO HAN MD Apr 18, 2021 07:54
[2021-04-18] MEDS: HYDROcodone/APAP 10/325 1 TAB TABLET PO PRN (08:22)
[2021-04-18] MEDS: PREGABALIN 75 MG CAPSULE PO SCH (08:22)
[2021-04-18] MEDS: cloNIDine HCL 0.3 MG TABLET PO SCH (08:22)
[2021-04-18] MEDS ORDERED: ASPIRIN ENTERIC COATED 81 MG TABLET.DR. PO SCH (09:00)
[2021-04-18] MEDS ORDERED: ISOSORBIDE MONONITRATE ER 30 MG TAB.ER.24H PO SCH (09:00)
[2021-04-18] MEDS ORDERED: buPROPion XL 150 MG TAB.ER.24H. PO SCH (09:00)
[2021-04-18] MEDS ORDERED: ATORVASTATIN CALCIUM 20 MG TABLET PO SCH (09:00)
[2021-04-18] MEDS ORDERED: VENLAFAXINE XR 37.5 MG CAP.ER.24H. PO SCH (09:00)
--- NOTE | 2021-04-18 10:51 | PDOC2 ---
CARDIAC CONSULT DATE OF CONSULT Date of Consult DATE: 04/18/21 TIME: 10:40 REASON FOR CONSULT Reason for Consult: Chest pain REFERRING PHYSICIAN Referring Physician: Dr. Jones SOURCE Source: Chart review, Patient HISTORY OF PRESENT ILLNESS HISTORY OF PRESENT ILLNESS This is a 60 yo female who presented secondary to pain. Patient reports experiencing brief pain in left chest yesterday evening. Reports as stabbing pain. Located in the central to left chest. Worse with deep breathing. No associated shortness of breath, dizziness, diaphoresis, or nausea/vomiting. Pain lasted about 5 minutes and resolved without intervention. pain returned a secondary time and again resolved without intervention so she decided to have sister bring her to the ED for further evaluation and treatment. She has had no further pain overnight. PAST MEDICAL HISTORY Cardiovascular: HTN, Hyperlipidemia CENTRAL NERVOUS SYSTEM: CVA Heme/Onc: Cancer (breast ) Psych: Anxiety, Depression Musculoskeletal: Osteoarthritis PAST SURGICAL HISTORY Past Surgical History: Appendectomy, Cholecystectomy, Total knee replacement (bilateral ), Hysterectomy, Other (lumpectomy ) FAMILY HISTORY Family History: Stroke SOCIAL HISTORY Smoke: No ALCOHOL: none Drugs: None Lives: with Family CURRENT MEDICATIONS CURRENT MEDICATIONS Current Medications Medications (Trade) Dose Ordered Sig/Adrian Route PRN Reason Start Time Stop Time Status Last Admin Dose Admin Nitroglycerin (Nitrostat) 0.4 mg PRN Q5MIN PRN SL CHEST PAIN 04/17/21 17:30 04/17/21 17:56 Tramadol HCl (Ultram) 50 mg PRN Q6HRS PRN PO MODERATE PAIN 04/17/21 18:15 04/17/21 23:24 Magnesium Sulfate/ Dextrose 100 ml @ 100 mls/hr 1X ONCE IV 04/17/21 19:00 04/17/21 19:59 DC 04/17/21 20:15 Potassium Bicarbonate (Potassium Effervescent Tablet) 10 meq 1X ONCE PO 04/17/21 19:00 04/17/21 19:01 DC 04/17/21 20:16 Aspirin (Ecotrin) 81 mg DAILY PO 04/18/21 09:00 04/18/21 08:21 Bupropion HCl (Wellbutrin Xl) 150 mg DAILY PO 04/18/21 09:00 04/18/21 08:22 Clonidine HCl (Catapres) 0.3 mg BID PO 04/17/21 21:00 04/18/21 08:22 Acetaminophen/ Hydrocodone Bitart (Lortab 10/325) 1 tab PRN Q6HRS PRN PO SEVERE PAIN 04/17/21 19:45 04/18/21 08:22 Isosorbide Mononitrate (Imdur) 30 mg DAILY PO 04/18/21 09:00 04/18/21 08:21 Pantoprazole Sodium (Protonix) 40 mg DAILYAC PO 04/18/21 07:30 04/18/21 08:22 Pregabalin (Lyrica) 75 mg BID PO 04/17/21 21:00 04/18/21 08:22 Venlafaxine HCl (Effexor Xr) 37.5 mg BID PO 04/18/21 09:00 04/18/21 08:22 Zolpidem Tartrate (Ambien) 5 mg PRN QHS PRN PO INSOMNIA, MAY REPEAT X1 04/17/21 20:00 04/17/21 20:50 ALLERGIES ALLERGIES: Coded Allergies: Iodinated Contrast Media (Verified Allergy, Intermediate, Rash, 10/19/15) iodine (Verified Allergy, Intermediate, Hives, 10/18/15) ITCHING morphine (Verified Allergy, Intermediate, Rash, 10/18/15) ITCHING ROS Review of System 14 point ROS conducted with pertinent positives noted above in HPI PHYSICAL EXAM General: Alert, Oriented X3, Cooperative, No acute distress HEENT: Atraumatic, Mucous membr. moist/pink Lungs: Clear to auscultation, Other (left chest tenderness upon palpation ) Heart: Regular rate Abdomen: Soft Extremities: No edema, Normal pulses Skin: No significant lesion Neuro: Normal speech, Sensation intact Psych/Mental Status: Mental status NL, Mood NL MUSCULOSKELETAL: Osteoarthritic changes both hands VITALS/I&O VITALS/I&O: Vital Signs Date Time Temp Pulse Resp B/P (MAP) Pulse Ox O2 Delivery O2 Flow Rate FiO2 04/18/21 08:52 96 Room Air 04/18/21 08:22 85 131/81 04/18/21 07:00 97.9 16 97.9 I & O 04/17/21 04/17/21 04/18/21 15:00 23:00 07:00 Intake Total 100 ml 500 ml Output Total 650 ml 1700 ml Balance -550 ml -1200 ml LABS Lab: Laboratory Tests Test 04/17/21 17:20 04/17/21 19:50 04/17/21 22:12 04/18/21 06:50 White Blood Count 5.2 x10^3/uL (4.0-11.0) Red Blood Count 4.10 x10^6/uL (3.50-5.40) Hemoglobin 11.5 g/dL (12.0-15.5) L Hematocrit 34.6 % (36.0-47.0) L Mean Corpuscular Volume 84 fL (79-100) Mean Corpuscular Hemoglobin 28 pg (25-35) Mean Corpuscular Hemoglobin Concent 33 g/dL (31-37) Red Cell Distribution Width 15.7 % (11.5-14.5) H Platelet Count 255 x10^3/uL (140-400) Neutrophils (%) (Auto) 34 % (31-73) Lymphocytes (%) (Auto) 45 % (24-48) Monocytes (%) (Auto) 18 % (0-9) H Eosinophils (%) (Auto) 3 % (0-3) Basophils (%) (Auto) 0 % (0-3) Neutrophils # (Auto) 1.7 x10^3/uL (1.8-7.7) L Lymphocytes # (Auto) 2.3 x10^3/uL (1.0-4.8) Monocytes # (Auto) 0.9 x10^3/uL (0.0-1.1) Eosinophils # (Auto) 0.2 x10^3/uL (0.0-0.7) Basophils # (Auto) 0.0 x10^3/uL (0.0-0.2) Segmented Neutrophils % 37 % (35-66) Lymphocytes % 44 % (24-48) Monocytes % 14 % (0-10) H Eosinophils % 4 % (0-5) Basophils % 1 % (0-3) Platelet Estimate Adequate (ADEQUATE) Polychromasia Slight Sodium Level 141 mmol/L (136-145) Potassium Level 3.9 mmol/L (3.5-5.1) Chloride Level 106 mmol/L (98-107) Carbon Dioxide Level 30 mmol/L (21-32) Anion Gap 5 (6-14) L Blood Urea Nitrogen 13 mg/dL (7-20) Creatinine 1.1 mg/dL (0.6-1.0) H Estimated GFR (Cockcroft-Gault) 61.1 Glucose Level 100 mg/dL (70-99) H Calcium Level 9.3 mg/dL (8.5-10.1) Magnesium Level 1.9 mg/dL (1.8-2.4) Troponin I Quantitative < 0.017 ng/mL (0.000-0.055) < 0.017 ng/mL (0.000-0.055) < 0.017 ng/mL (0.000-0.055) VS-Qrm-W-Type Natriuretic Peptide 71 pg/mL (0-124) Triglycerides Level 38 mg/dL (0-150) Cholesterol Level 196 mg/dL (0-200) LDL Cholesterol, Calculated 88 mg/dL (0-100) VLDL Cholesterol, Calculated 8 mg/dL (0-40) Non-HDL Cholesterol Calculated 96 mg/dL (0-129) HDL Cholesterol 100 mg/dL (40-60) H Cholesterol/HDL Ratio 2.0 Laboratory Tests 04/17/21 17:20 Laboratory Tests 04/17/21 17:20 ECHOCARDIOGRAM ECHOCARDIOGRAM <Conclusion> Normal LV systolic function. EF 65% No significant valvular dysfunction. DATE: 10/18/15 1259 STRESS TEST STRESS TEST Conclusion 1. No evidence of stress induced ischemic changes by EKG. 2. Normal myocardial perfusion at stress and rest. 3. Normal EF with stress. EF > 70% 4. Low risk study DATE: 10/19/15 1405 ASSESSMENT/PLAN ASSESSMENT/PLAN 1. Chest pain, atypical. AMI ruled out. EKG without significant acute changes as compared to previous 2. Hypertension; controlled 3. Hyperlipidemia; statin 4. H/o CVA 5. H/o breast CA Recommendations ASA, statin therapy Lipids Echo to assess LV systolic function Will arrange outpatient ischemic evaluation Supportive care GUTIERREZ BARRY APRN Apr 18, 2021 10:51
[2021-04-18 11:00] VITALS: BP 98/55
--- NOTE | 2021-04-18 11:19 | PDOC3 ---
Discharge Summary Visit Information Date of Admission: Apr 17, 2021 Date of Discharge: Apr 18, 2021 Admitting Diagnosis: Chest pain Final Diagnosis Problems Medical Problems: (1) Chest pain at rest Status: Acute Brief Hospital Course Allergies Allergies Coded Allergies Type Severity Reaction Last Updated Verified Iodinated Contrast Media Allergy Intermediate Rash 10/19/15 Yes iodine Allergy Intermediate Hives 10/18/15 Yes morphine Allergy Intermediate Rash 10/18/15 Yes Vital Signs Vital Signs Date Time Temp Pulse Resp B/P (MAP) Pulse Ox O2 Delivery O2 Flow Rate FiO2 04/18/21 11:00 97.9 74 16 98/55 (69) 93 Room Air 97.9 Lab Results Laboratory Tests Test 04/17/21 17:20 04/17/21 19:50 04/17/21 22:12 04/18/21 06:50 White Blood Count 5.2 x10^3/uL (4.0-11.0) Red Blood Count 4.10 x10^6/uL (3.50-5.40) Hemoglobin 11.5 g/dL (12.0-15.5) Hematocrit 34.6 % (36.0-47.0) Mean Corpuscular Volume 84 fL (79-100) Mean Corpuscular Hemoglobin 28 pg (25-35) Mean Corpuscular Hemoglobin Concent 33 g/dL (31-37) Red Cell Distribution Width 15.7 % (11.5-14.5) Platelet Count 255 x10^3/uL (140-400) Neutrophils (%) (Auto) 34 % (31-73) Lymphocytes (%) (Auto) 45 % (24-48) Monocytes (%) (Auto) 18 % (0-9) Eosinophils (%) (Auto) 3 % (0-3) Basophils (%) (Auto) 0 % (0-3) Neutrophils # (Auto) 1.7 x10^3/uL (1.8-7.7) Lymphocytes # (Auto) 2.3 x10^3/uL (1.0-4.8) Monocytes # (Auto) 0.9 x10^3/uL (0.0-1.1) Eosinophils # (Auto) 0.2 x10^3/uL (0.0-0.7) Basophils # (Auto) 0.0 x10^3/uL (0.0-0.2) Segmented Neutrophils % 37 % (35-66) Lymphocytes % 44 % (24-48) Monocytes % 14 % (0-10) Eosinophils % 4 % (0-5) Basophils % 1 % (0-3) Platelet Estimate Adequate (ADEQUATE) Polychromasia Slight Sodium Level 141 mmol/L (136-145) Potassium Level 3.9 mmol/L (3.5-5.1) Chloride Level 106 mmol/L (98-107) Carbon Dioxide Level 30 mmol/L (21-32) Anion Gap 5 (6-14) Blood Urea Nitrogen 13 mg/dL (7-20) Creatinine 1.1 mg/dL (0.6-1.0) Estimated GFR (Cockcroft-Gault) 61.1 Glucose Level 100 mg/dL (70-99) Calcium Level 9.3 mg/dL (8.5-10.1) Magnesium Level 1.9 mg/dL (1.8-2.4) Troponin I Quantitative < 0.017 ng/mL (0.000-0.055) < 0.017 ng/mL (0.000-0.055) < 0.017 ng/mL (0.000-0.055) EX-Ogk-B-Type Natriuretic Peptide 71 pg/mL (0-124) Triglycerides Level 38 mg/dL (0-150) Cholesterol Level 196 mg/dL (0-200) LDL Cholesterol, Calculated 88 mg/dL (0-100) VLDL Cholesterol, Calculated 8 mg/dL (0-40) Non-HDL Cholesterol Calculated 96 mg/dL (0-129) HDL Cholesterol 100 mg/dL (40-60) Cholesterol/HDL Ratio 2.0 Laboratory Tests Test 04/17/21 17:20 04/17/21 19:50 04/17/21 22:12 04/18/21 06:50 White Blood Count 5.2 x10^3/uL (4.0-11.0) Red Blood Count 4.10 x10^6/uL (3.50-5.40) Hemoglobin 11.5 g/dL (12.0-15.5) Hematocrit 34.6 % (36.0-47.0) Mean Corpuscular Volume 84 fL (79-100) Mean Corpuscular Hemoglobin 28 pg (25-35) Mean Corpuscular Hemoglobin Concent 33 g/dL (31-37) Red Cell Distribution Width 15.7 % (11.5-14.5) Platelet Count 255 x10^3/uL (140-400) Neutrophils (%) (Auto) 34 % (31-73) Lymphocytes (%) (Auto) 45 % (24-48) Monocytes (%) (Auto) 18 % (0-9) Eosinophils (%) (Auto) 3 % (0-3) Basophils (%) (Auto) 0 % (0-3) Neutrophils # (Auto) 1.7 x10^3/uL (1.8-7.7) Lymphocytes # (Auto) 2.3 x10^3/uL (1.0-4.8) Monocytes # (Auto) 0.9 x10^3/uL (0.0-1.1) Eosinophils # (Auto) 0.2 x10^3/uL (0.0-0.7) Basophils # (Auto) 0.0 x10^3/uL (0.0-0.2) Segmented Neutrophils % 37 % (35-66) Lymphocytes % 44 % (24-48) Monocytes % 14 % (0-10) Eosinophils % 4 % (0-5) Basophils % 1 % (0-3) Platelet Estimate Adequate (ADEQUATE) Polychromasia Slight Sodium Level 141 mmol/L (136-145) Potassium Level 3.9 mmol/L (3.5-5.1) Chloride Level 106 mmol/L (98-107) Carbon Dioxide Level 30 mmol/L (21-32) Anion Gap 5 (6-14) Blood Urea Nitrogen 13 mg/dL (7-20) Creatinine 1.1 mg/dL (0.6-1.0) Estimated GFR (Cockcroft-Gault) 61.1 Glucose Level 100 mg/dL (70-99) Calcium Level 9.3 mg/dL (8.5-10.1) Magnesium Level 1.9 mg/dL (1.8-2.4) Troponin I Quantitative < 0.017 ng/mL (0.000-0.055) < 0.017 ng/mL (0.000-0.055) < 0.017 ng/mL (0.000-0.055) MA-Atd-Z-Type Natriuretic Peptide 71 pg/mL (0-124) Triglycerides Level 38 mg/dL (0-150) Cholesterol Level 196 mg/dL (0-200) LDL Cholesterol, Calculated 88 mg/dL (0-100) VLDL Cholesterol, Calculated 8 mg/dL (0-40) Non-HDL Cholesterol Calculated 96 mg/dL (0-129) HDL Cholesterol 100 mg/dL (40-60) Cholesterol/HDL Ratio 2.0 Brief Hospital Course Ms Ruiz is a 60yo F w/ PMHx fibromyalgia, breast ca s/p left mastectomy and neoadjuvant therapy in 2005, prior CVA in 2005, HTN, HLD, chronic back pain, GERD who presents to the ED c/o sharp left sided chest pain she experienced while giving her 4 year old grandchild a bath. Pain is sharp, stabbing in nature in the 4th intercostal space on the left parasternal border. Improved a bit with pressure, worsened with repositioning. No radiation. BP not elevated significantly. Some associated nausea. She and her daughter also c/o bilateral LE swelling which is R>L, no erythema or warmth noted. She does have significant GERD history and has been instructed to cut out alcohol in the evening and not to lay down or eat late. She does continue to have a glass of wine before she falls asleep, but does comply with eating earlier in the evening. No recent travel or sick contacts. She had a negative cardiac stress test in 2016 and had similar pain with shortness of breath 1 month ago and underwent negative CTPA and bilateral venous dopplers. Labs with no significant changes from 1 month prior, mild anemia, Cr elevated at 1.1 consistent with likely CKD 2a history, troponin negative. EKG NSR rate of 86bpm with some PACs, left axis deviation and TWI in anterior leads unchanged from prior. No ST segment abnormalities Chest radiograph with no acute findings. Given 325mg ASA and 1x NTG with improvement in symptoms, though she did c/o headache. Admitted for further observation. Troponin negative x3 overnight. Negative venous dopplers of legs. Pain is resolved likely musculoskeletal. Consults: Cardiology Problem list: Chest pain - atypical. Concerning as it is relieved with NTG. Telemetry ordered. trend troponins. Likely pectoralis major strain with underlying GERD related complicated by chronic pain Bilateral LE edema - negative repeat venous dopplers would consider decreasing or discontinuing amlodipine to see if this helps Chronic pain - s/p lumbar laminectomy, treated for fibromyalgia remote Left breast cancer, status post lumpectomy, received adjuvant chemo in 2006 CVA - 2006 no residual deficits. On statin, asa HTN - cont home meds HLD - statin Chronic back pain - advised to consider alternative to opioid therapy GERD - on PPI, advised to cut out evening alcohol and trial mediterranean diet CKD 1/2a - has outpatient nephrology referral Greater than 30 minutes spent on d/c home with self care Discharge Information Condition at Discharge: Improved Follow Up: Weeks (1) Disposition/Orders: D/C to Home Scheduled Amlodipine Besylate (Amlodipine Besylate) 10 Mg Tablet, 10 MG PO DAILY for hypertension, (Reported) Entered as Reported by: FRANSISCA SMILEY on 03/15/21 1745 Last Action: Continued on 04/17/211937 by Alexis Leal Aspirin (Aspirin Ec) 81 Mg Tablet.dr, 1 TAB PO DAILY for stroke prevention, #30 Ref 3 (Reported) Entered as Reported by: FRANSISCA SMILEY on 03/15/21 1738 Last Action: Continued on 04/17/211937 by Alexis Leal Atorvastatin Calcium (Lipitor) 20 Mg Tablet, 20 MG PO DAILY for FOR CHOLESTEROL, #30 Ref 0 (Reported) Entered as Reported by: MINA WOODRUFF on 03/04/14 120 Last Action: Continued on 04/17/211937 by Alexis Leal Bupropion Hcl (Bupropion Xl) 150 Mg Tab.er.24h, 150 MG PO DAILY, (Reported) Entered as Reported by: MINA WOODRUFF on 03/04/14 1203 Last Action: Continued on 04/17/211937 by Alexis Leal Clonidine Hcl (Clonidine Hcl) 0.3 Mg Tablet, 0.3 MG PO BID, (Reported) Entered as Reported by: MINA WOODRUFF on 03/04/14 120 Last Action: Continued on 04/17/211937 by Alexis Leal Isosorbide Mononitrate (Isosorbide Mononitrate Er) 30 Mg Tab.er.24h, 1 TAB PO DAILY for heart, #30 Ref 5 (Reported) Entered as Reported by: Alexis Leal on 04/17/21 1854 Last Action: Continued on 04/17/211937 by Alexis Leal Pantoprazole Sodium (Pantoprazole Sodium ) 40 Mg Tablet.dr, 40 MG PO DAILYAC for GERD, (Reported) Entered as Reported by: FRANSISCA SMILEY on 03/15/211744 Last Action: Continued on 04/17/211937 by Alexis Leal Pregabalin (Lyrica) 75 Mg Capsule, 1 CAP PO BID for neuropathy, #60 Ref 1 (Reported) Entered as Reported by: FRANSISCA SMILEY on 03/15/211741 Last Action: Continued on 04/17/211937 by Alexis Leal Venlafaxine Hcl (Venlafaxine Hcl Er) 75 Mg Tab.er.24, 1 TAB PO DAILY for depression for 30 Days, #30 Ref 0 (Reported) Entered as Reported by: FRANSISCA SMILEY on 03/15/211741 Last Action: Converted on 04/17/211937 by Alexis Leal Scheduled PRN Hydrocodone Bit/Acetaminophen (Hydrocodone-Apap 10-325 ) 1 Tab Tablet, 1 TAB PO PRN Q6HRS PRN for PAIN, Ref 0 (Reported) Entered as Reported by: FRANSISCA SMILEY on 03/15/211744 Last Action: Continued on 04/17/211937 by Alexis Leal Zolpidem Tartrate (Ambien) 10 Mg Tablet, 10 MG PO HS PRN for INSOMNIA, Ref 0 (Reported) Entered as Reported by: MINA WOODRUFF on 03/04/14 1203 Last Action: Converted on 04/17/211937 by Alexis Lela Justicifation of Admission Dx: Justifications for Admission: Justification of Admission Dx: Yes Respiratory Failure: Severe Resp Distress PAOLO CALDERÓN MD Apr 18, 2021 11:19
--- NOTE | 2021-04-18 11:42 | NUR ---
SS following for discharge planning. SS reviewed pt chart and discussed with pt RN. Pt is from home and is currently on room air. Cardiology consulted. Discharge order on the chart for home with self care.
[2021-04-18 15:00] VITALS: BP 102/58
--- NOTE | 2021-04-18 16:22 | CARD ---
MR#: [id number] Date of Study: 04/18/2021 Ordering Physician: GUTIERREZ BARRY, Referring Physician: GUTIERREZ BARRY, Tech: APPROVED REPORT EXAM: Two-dimensional and M-mode echocardiogram with Doppler and color Doppler. INDICATION Hypertension/HCVD RISK FACTORS Hypertension Obesity 2D DIMENSIONS RVDd3.0 (2.9-3.5cm)Left Atrium(2D)4.8 (1.6-4.0cm) IVSd1.4 (0.7-1.1cm)Aortic Root(2D)3.2 (2.0-3.7cm) LVDd5.0 (3.9-5.9cm)LVOT Diameter2.0 (1.8-2.4cm) PWd1.1 (0.7-1.1cm)LVDs2.8 (2.5-4.0cm) FS (%) 43.7 %SV89.9 ml LVEF(%)74.7 (>50%) Aortic Valve AoV Peak Stas.198.4cm/sAoV VTI39.9cm AO Peak GR.15.8mmHgLVOT Peak Stas.130.1cm/s AO Mean GR.8mmHgAVA (VMAX)2.12cm2 Mitral Valve MV E Xepicrer70.6cm/sMV DECEL [id number] MV A Fqauodao84.5cm/sE/A Ratio1.0 Tricuspid Valve TR P. [id number]/sTR Peak Gr.31mmHg LEFT VENTRICLE The left ventricle is normal size. There is normal left ventricular wall thickness. The left ventricu lar systolic function is normal and the ejection fraction is within normal range. Estimated ejection fraction 60-65%. There is normal LV segmental wall motion. The left ventricular diastolic function an d filling is normal for age. RIGHT VENTRICLE The right ventricle is normal size. There is normal right ventricular wall thickness. The right ventr icular systolic function is normal. ATRIA The left atrium size is normal. The right atrium size is normal. The interatrial septum is intact wit h no evidence for an atrial septal defect or patent foramen ovale as noted on 2-D or Doppler imaging. AORTIC VALVE The aortic valve is normal in structure and function. Doppler and Color Flow revealed no significant aortic regurgitation. There is no significant aortic valvular stenosis. MITRAL VALVE The mitral valve is normal in structure and function. There is no evidence of mitral valve prolapse. There is no mitral valve stenosis. Doppler and Color-flow revealed trace mitral regurgitation. TRICUSPID VALVE The tricuspid valve is normal in structure and function. Doppler and Color Flow revealed trace tricus pid regurgitation. Estimated PAP 35 mmHG. There is no tricuspid valve stenosis. PULMONIC VALVE Doppler and Color Flow revealed no pulmonic valvular regurgitation. There is no pulmonic valvular rose mary nosis. GREAT VESSELS The aortic root is normal in size. The ascending aorta is normal in size. The IVC is normal in size a nd collapses >50% with inspiration. PERICARDIAL EFFUSION There is no evidence of significant pericardial effusion. Critical Notification Critical Value: No <Conclusion> The left ventricular systolic function is normal and the ejection fraction is within normal range. E stimated ejection fraction 60-65%. There is normal LV segmental wall motion. Signed by : Horacio Villarreal, Electronically Approved : 04/18/2021 16:22:09
--- NOTE | 2021-04-18 18:18 | NUR ---
Discharge Note: [facility] Discharge instructions and discharge home medications reviewed with Patient and a copy given. All questions have been answered and understanding verbalized. The following instructions and handouts were given: chest pain Patient discharged to home with self care via wheelchair.
== END 2021-04-18 18:10 | disposition home or self-care (01) ==
LOC: ER 16:52 → 6 SOUTH 17:51
PROVIDERS: ADMIT Internal Medicine; ATTEND Internal Medicine
DX: R07.89 Other chest pain (principal); I12.9 Hypertensive chronic kidney disease with stage 1 through stage 4 chronic kidney disease, or unspecified chronic kidney disease; N18.1 Chronic kidney disease, stage 1; K21.9 Gastro-esophageal reflux disease without esophagitis; M79.7 Fibromyalgia; E66.9 Obesity, unspecified; R60.9 Edema, unspecified; E78.00 Pure hypercholesterolemia, unspecified; E78.5 Hyperlipidemia, unspecified; G89.29 Other chronic pain; Z85.3 Personal history of malignant neoplasm of breast; Z86.73 Personal history of transient ischemic attack (TIA), and cerebral infarction without residual deficits; Z90.12 Acquired absence of left breast and nipple; Z90.710 Acquired absence of both cervix and uterus; Z92.21 Personal history of antineoplastic chemotherapy; Z96.653 Presence of artificial knee joint, bilateral; Z79.899 Other long term (current) drug therapy
CPT/HCPCS: 36415; 71045; 80048; 80061; 83735; 83880; 84484; 85007; 85025; 93005; 93306; 93970; 96365; 99285; G0378; J3475; G0379

== ENCOUNTER → 2021-07-24 | Outpatient (CLI) | payer MEDICARE ==
[~2021-07-24] MED LIST changes: +ISOS30TA68 PO
[2021-07-24 14:20] LABS: ALBUMIN 3.5 g/dL (3.4-5.0); ALBUMIN/GLOBULIN RATIO 0.8 (1.0-1.7); CALCIUM 8.9 mg/dL (8.5-10.1); POTASSIUM 3.8 mmol/L (3.5-5.1); TOTAL BILIRUBIN 0.3 mg/dL (0.2-1.0); TOTAL PROTEIN 7.7 g/dL (6.4-8.2)
== END ==
LOC: LAB 13:05
PROVIDERS: ATTEND Family Medicine
DX: N28.9 Disorder of kidney and ureter, unspecified (principal)
CPT/HCPCS: 36415; 80053

== ENCOUNTER → 2021-11-07 | Outpatient (CLI) | payer BC, MEDICARE ==
--- NOTE | 2021-11-07 14:05 | RAD ---
INDICATION : Routine Screening. COMPARISON: Prior examinations including September 2016 TECHNIQUE: Standard mammogram screening views of the bilateral breasts were obtained with 3D tomosynt hesis. CAD was utilized. FINDINGS: The breasts are scattered density. There is repeat demonstration of postoperative changes to left br east with architectural distortion as well as focal asymmetry at the operative site. No definite new suspicious mass. IMPRESSION: BI-RADS Category 2: Benign findings. Recommend repeat screening examination in one year. The patient was placed into the recall system with a suggested recall date for follow up imaging. Mammography is the most sensitive method for finding small breast cancers, but it does not detect the m all and is not a substitute for careful clinical examination. A negative mammogram does not negate a clinically suspicious finding and should not result in delay in biopsying a clinically suspicious abnormality. Electronically signed by: Casa Jara MD (11/07/2021 2:03 PM) [id number]
== END ==
LOC: MAMMO 13:05
PROVIDERS: ATTEND Internal Medicine Hematology & Oncology
DX: Z12.31 Encounter for screening mammogram for malignant neoplasm of breast (principal)
CPT/HCPCS: 77063; 77067